=== PATIENT | female | born 1985 | race Caucasian/White ===

== ENCOUNTER 2017-11-13 22:23 | Observation (INO) | payer BC ==
[2017-11-13] MEDS ORDERED: Acetaminophen 325 MG Tab PO PRN (22:36)
[2017-11-13] MEDS ORDERED: Sodium Chloride 0.9% 1,000 ML IV ONE (22:57)
[2017-11-13] MEDS ORDERED: Ondansetron 4 MG/2 ML SDV IVPUSH PRN (22:58)
[2017-11-13] MEDS ORDERED: Promethazine 25 MG/ML SDV IM ONE (22:58)
[2017-11-13] MEDS ORDERED: Morphine 10 MG/ML Syringe IVPUSH PRN (22:59)
[2017-11-13] MEDS ORDERED: Ketorolac 30 MG/ML SDV IVPUSH ONE (23:01)
--- NOTE | 2017-11-13 23:27 | PCM.HP ---
H&P History of Present Illness - General Date of Service: 11/13/17 Admit Problem/Dx: Admission Diagnosis/Problem Admission Diagnosis/Problem Abdominal pain Source of Information: Patient History Limitations: Reports: No Limitations - History of Present Illness Initial Comments - Free Text/Narative: Patient admitted on observation for continued problems with abdominal pain/ nausea/emesis. Employed at our facility. Started to develop abdominal discomfort last Tuesday, one week ago. Discussed this with Kennedy Winkler from our hospital clinic, and he recommended to her to follow up with [facility] surgeons who performed her recent gastric bypass surgery. On Tuesday patient was evaluated by the bariatric surgical staff from [facility], and had CT of abdomen and pelvis performed. CT was unremarkable. Labs unremarkable. Surgeon did not feel that this was a surgical issue and did not find a particular reason for patient's complaints. Patient worked the rest of the week and continued to have intermittent crampy/sharp pain, mostly in RUQ and upper mid abdomen. Intermittent nausea. No bowel changes. No fevers. No UTI complaints. Pain did not radiate. No change with eating/drinking/position. Pain worsened today, becoming more frequent. It is in mid upper abdomen as well as left lower abdomen at this point. Episodes can be as often as every 15- 20 min. Still has nausea. Some dry heaves. No fever/chills. No weight change reported. She did note more frequent softer stools than usual today. No blood/dark color noted. Hx of bariatric surgery, PCO, morbid obesity. Took Zofran at home. Presented to hospital. In view of her recent extensive workup it was decided to admit her to observation, give fluids, improve pain/nausea, and provide additional workup as needed. Patient takes numerous vitamins but says she is on no prescription medications. Abdomen Pain Score (Numeric/FACES): 8 - Related Data Allergies/Adverse Reactions: Allergies Allergy/AdvReac Type Severity Reaction Status Date / Time No Known Allergies Allergy Verified 11/08/17 16:16 Home Medications: Home Meds Biotin [Biotin] 10,000 mcg PO DAILY 11/13/17 [History] Calcium Citrate/Vitamin D3 [Calcium Citrate + D] 1 tab PO DAILY 11/13/17 [ History] Cholecalciferol (Vitamin D3) [Vitamin D3] 5,000 unit PO DAILY 11/13/17 [History] Cyanocobalamin (Vitamin B-12) [Vitamin B-12] 1,000 mcg SL DAILY 11/13/17 [ History] Esomeprazole Magnesium [Nexium] 40 mg PO DAILY 11/13/17 [History] Hyoscyamine [Levsin] 0.125 mg PO Q4HR 11/13/17 [History] Multivit &Minerals/Ferrous Fum [Multivitamin Liquid] 30 ml PO BID 11/13/17 [ History] Ondansetron [Zofran ODT] 4 mg PO Q6HR 11/13/17 [History] Spironolactone [Aldactone] 100 mg PO BID 11/13/17 [History] Vitamin B Complex [Balanced B-50] 1 tab PO DAILY 11/13/17 [History] Past Medical History Respiratory History: Reports: Sleep Apnea Endocrine/Metabolic History: Reports: Obesity/BMI 30+, Other (See Below) ( Polycystic Ovarian Syndrome) Social & Family History - Family History Family Medical History: Noncontributory (for this complaint) - Tobacco Use Smoking Status *Q: Current Every Day Smoker H&P Review of Systems - Review of Systems: Review Of Systems: See Below General: Reports: Malaise, Decreased Appetite. Denies: Fever, Chills, Weakness , Night Sweats, Diaphoresis, Weight Loss, Weight Gain HEENT: Reports: No Symptoms Pulmonary: Reports: No Symptoms Cardiovascular: Reports: No Symptoms Gastrointestinal: Reports: Abdominal Pain, Decreased Appetite, Nausea, Vomiting. Denies: Black Stool, Bloody Stool, Constipation, Diarrhea, Difficulty Swallowing, Hematemesis Genitourinary: Reports: No Symptoms, Other (has IUD) Musculoskeletal: Reports: No Symptoms Skin: Reports: No Symptoms Psychiatric: Reports: No Symptoms Neurological: Reports: No Symptoms Hematologic/Lymphatic: Reports: No Symptoms Exam - Exam Exam: See Below - Vital Signs Vital Signs: Last Vital Signs Temp 36.4 C 11/13/17 22:57 Pulse 58 L 11/13/17 22:57 Resp 16 11/13/17 22:57 BP 134/84 11/13/17 22:57 Pulse Ox 96 11/13/17 22:57 - Exam General: Alert, Oriented, Cooperative, Mild Distress (intermittent pain episodes ) HEENT: Conjunctiva Clear, EACs Clear, EOMI, Hearing Intact, Mucosa Moist & [place] , Nares Patent, Normal Nasal Septum, Pupils Equal, Pupils Reactive Neck: Supple, Trachea Midline Lungs: Clear to Auscultation, Normal Respiratory Effort Cardiovascular: Regular Rate, Regular Rhythm GI/Abdominal Exam: Normal Bowel Sounds, Soft, No Distention, Tender (Diffuse tenderness with palpation all quadrants, but more so RUQ, mid upper abdomen, left mid and lower abdomen. No significant tenderness over bladder/ovaries. ). No: Guarding, Rigid, Rebound (Female) Exam: Deferred Rectal (Female) Exam: Deferred Back Exam: Normal Inspection. No: CVA Tenderness (L), CVA Tenderness (R), Muscle Spasm, Paraspinal Tenderness, Vertebral Tenderness Extremities: Normal Inspection, Normal Range of Motion, Non-Tender, Normal Capillary Refill Peripheral Pulses: 2+: Radial (L), Radial (R) Skin: Warm, Dry, Intact Neurological: Strength Equal Bilateral, Normal Gait, Normal Speech, Normal Tone Neuro Extensive - Mental Status: Alert, Oriented x3, Normal Mood/Affect, Normal Cognition, Memory Intact Neuro Extensive - Motor, Sensory, Reflexes: Normal Gait Psychiatric: Alert, Normal Affect, Normal Mood - Patient Data Result Diagrams: 11/13/17 23:21 11/13/17 23:21 Imaging Impressions Last 24 hrs: Abdominal films did not show obstruction/acute abdomen. No air under diaphragm. *Q Meaningful Use (ADM) - VTE *Q VTE Criteria *Q: - Stroke *Q Stroke Criteria *Q: - AMI *Q AMI Criteria *Q: - Problem List (1) Abdominal pain SNOMED Code(s): 46768490 ICD Code: R10.9 - UNSPECIFIED ABDOMINAL PAIN Status: Acute Priority: High Current Visit: Yes Problem Details: Present for one full week. Extensive workup performed prior to today, including surgical evaluation, CT of abd/pelvis, and blood work. No focal cause identified at this time as workup unremarkable. Worsening intensity today, now includes LLQ. Does not have signs consistent with acute abdomen at this time. Abdomen is soft, no guarding/ rebound. No fevers. Cannot rule out gastroenteritis in differential. Qualifiers: Abdominal location: generalized Qualified Code(s): R10.84 - Generalized abdominal pain (2) Obesity SNOMED Code(s): 003096234 ICD Code: E66.9 - OBESITY, UNSPECIFIED Status: Chronic Priority: Low Current Visit: No Qualifiers: Obesity classification: adult class 3 (BMI >= 40) (3) History of gastric bypass SNOMED Code(s): 618242200 ICD Code: Z98.84 - BARIATRIC SURGERY STATUS Status: Chronic Priority: Medium Current Visit: Yes (4) PCO (polycystic ovaries) SNOMED Code(s): 11244244 ICD Code: E28.2 - POLYCYSTIC OVARIAN SYNDROME Status: Chronic Priority: Low Current Visit: Yes (5) Sleep apnea SNOMED Code(s): 36532625 ICD Code: G47.30 - SLEEP APNEA, UNSPECIFIED Status: Chronic Priority: Low Current Visit: No Qualifiers: Sleep apnea type: unspecified type Qualified Code(s): G47.30 - Sleep apnea , unspecified Problem List Initiated/Reviewed/Updated: Yes Orders Last 24hrs: Active Orders 24 hr Category Date Time Status Patient Status [ADT] Routine ADT 11/13/17 22:36 Active Antiembolic Devices [RC] .Routine Care 11/13/17 22:38 Active Height and Weight [RC] UPON Care 11/13/17 22:36 Active Intake and Output [RC] QSHIFT Care 11/13/17 22:37 Active Pulse Oximetry [RC] PRN Care 11/13/17 22:37 Active Up ad Sunshine [RC] ASDIRECTED Care 11/13/17 22:36 Active VTE/DVT Education [RC] PER UNIT ROUTINE Care 11/13/17 22:38 Active Vital Signs [RC] Q6HR Care 11/13/17 22:36 Active NPO [Nothing Per Oral Diet] [DIET] Diet 11/14/17 Breakfast Active Abdomen 2V AP Flat Upright [CR] Routine Exams 11/13/17 22:45 Ordered AMYLASE [CHEM] Routine Lab 11/13/17 22:55 Ordered CBC WITH AUTO DIFF [HEME] Routine Lab 11/13/17 22:55 Ordered COMPREHENSIVE METABOLIC PN,CMP [CHEM] Routine Lab 11/13/17 22:55 Ordered H PYLORI STOOL ANTIGEN [MREF] Routine Lab 11/13/17 23:04 Ordered HCG QUALITATIVE,URINE [URCHEM] Routine Lab 11/13/17 22:56 Ordered LIPASE [CHEM] Routine Lab 11/13/17 22:55 Ordered OCCULT BLOOD DIAGNOSTIC [OP] Routine Lab 11/13/17 23:05 Ordered UA W/MICROSCOPIC [URIN] Stat Lab 11/13/17 22:54 Ordered Acetaminophen [Tylenol] Med 11/13/17 22:36 Active 650 mg PO Q4H PRN Morphine Med 11/13/17 22:59 Active 5 mg IVPUSH Q2H PRN Ondansetron [Zofran] Med 11/13/17 22:58 Active 4 mg IVPUSH Q6H PRN Sodium Chloride 0.9% [Normal Saline] 1,000 ml Med 11/13/17 22:57 Active IV .BOLUS Sodium Chloride 0.9% [Normal Saline] 1,000 ml Med 11/14/17 01:00 Active IV .BOLUS Sodium Chloride 0.9% [Normal Saline] 1,000 ml Med 11/14/17 03:00 Active IV ASDIRECTED Sodium Chloride 0.9% [Saline Flush] Med 11/13/17 22:55 Active 10 ml FLUSH ASDIRECTED PRN Antiembolic Hose [OM.PC] Per Unit Routine Oth 11/13/17 22:38 Ordered DVT/VTE Prophylaxis Reflex [OM.PC] Routine Oth 11/13/17 22:36 Ordered Saline Lock Insert [OM.PC] Routine Oth 11/13/17 22:55 Ordered Code Status [Resuscitation Status] Routine Resus Stat 11/13/17 22:39 Ordered Medication Orders Acetaminophen (Tylenol) 650 mg PO Q4H PRN PRN Reason: analgesia/fever Sodium Chloride (Normal Saline) 1,000 mls @ 999 mls/hr IV .BOLUS ONE Stop: 11/13/17 23:57 Sodium Chloride (Normal Saline) 1,000 mls @ 500 mls/hr IV .BOLUS ONE Stop: 11/14/17 02:59 Sodium Chloride (Normal Saline) 1,000 mls @ 125 mls/hr IV ASDIRECTED [facility] Morphine Sulfate (Morphine) 5 mg IVPUSH Q2H PRN PRN Reason: Pain (severe 7-10) Ondansetron HCl (Zofran) 4 mg IVPUSH Q6H PRN PRN Reason: Nausea/Vomiting Sodium Chloride (Saline Flush) 10 ml FLUSH ASDIRECTED PRN PRN Reason: Keep Vein Open Assessment/Plan Comment:: Abdominal pain,nausea, emesis over the past week. Worsening intensity today. Unremarkable workup earlier this week including CT. No associated fevers, guarding/rebound. Admit for IV fluids, labs, pain management and additional workup as needed. Cannot rule out viral cause/gastroenteritis as part of differential. UA ordered.
[2017-11-14 00:08] LABS: CHLORIDE,CL 108 mmol/L (98-107); SODIUM,NA 142 mmol/L (136-145)
[2017-11-14] MEDS ORDERED: Sodium Chloride 0.9% 1,000 ML IV ONE ×2 (01:00→07:01)
[2017-11-14] MEDS ORDERED: Sodium Chloride 0.9% 1,000 ML IV SCH (03:00)
[2017-11-14] MEDS ORDERED: Ketorolac 30 MG/ML SDV IVPUSH PRN (06:35)
--- NOTE | 2017-11-14 07:10 | PCM.SN ---
- Free Text/Narrative Note: Patient received IM Phenergan and IV Toradol after admission. Significant improvement of pain. Has had only 350cc urine output at this point despite fluid given IV. Additional bolus of fluid ordered. Patient has been comfortable and sleeping throughout night.
[2017-11-14] MEDS ORDERED: Pantoprazole 40 MG Vial IVPUSH ONE (07:37)
[2017-11-14] MEDS ORDERED: Non-Formulary Medication 1 Each (Hyoscyamine [Levsin] 0.125 MG) PO PRN (08:00)
[2017-11-14] MEDS: Spironolactone 25 MG Tab PO SCH ×3 (08:20→19:35)
[2017-11-14] MEDS ORDERED: Pantoprazole 40 MG Vial IVPUSH SCH (09:00)
--- NOTE | 2017-11-14 09:07 | PCM.PN ---
- General Info Date of Service: 11/14/17 Admission Dx/Problem (Free Text): Abdomen pain Functional Status: Reports: Pain Controlled, Ambulating, Urinating. Denies: Tolerating Diet (Still nothing by mouth however feels she can eat this morning) , New Symptoms, Incentive Spirometry Pain Score: 2 (Much improved with no nausea or colic) - Review of Systems General: Reports: No Symptoms. Denies: Fever, Weakness, Fatigue, Malaise, Chills, Night Sweats HEENT: Reports: No Symptoms. Denies: Dysphasia, Ear Pain, Eye Pain, Headaches, Post Nasal Drip, Sinus Congestion, Sore Throat, Rhinitis, Visual Changes Pulmonary: Reports: No Symptoms. Denies: Shortness of Breath, Pleuritic Chest Pain, Cough, Sputum, Wheezing Cardiovascular: Reports: No Symptoms. Denies: Chest Pain, Palpitations, Dyspnea on Exertion, Orthopnea, Edema, Lightheadedness Gastrointestinal: Reports: Abdominal Pain (Much improved), Other (Excellent large bowel movement at 5 AM this morning by patient history). Denies: Constipation, Decreased Appetite, Diarrhea, Difficulty Swallowing, Flatus, Hematochezia, Melena, Nausea, Vomiting Genitourinary: Reports: No Symptoms, Other (Despite positive UA). Denies: Dysuria, Frequency, Burning, Pain, Urgency, Incontinence, Hematuria, Retention, Flank Pain Musculoskeletal: Reports: No Symptoms. Denies: Neck Pain, Shoulder Pain, Arm Pain, Back Pain, Leg Pain Skin: Reports: No Symptoms. Denies: Cyanosis, Jaundice, Mottled, Diaphoresis, Bruising, Pruritis, Rash Neurological: Reports: No Symptoms. Denies: Confusion, Dizziness, Headache, Numbness, Paresthesia, Tingling, Weakness Psychiatric: Reports: No Symptoms. Denies: Confusion, Depression, Anxiety - Patient Data Vitals - Most Recent: Last Vital Signs Temp 36.9 C 11/13/17 23:05 Pulse 69 11/13/17 23:05 Resp 14 11/13/17 23:05 BP 119/77 11/13/17 23:05 Pulse Ox 97 11/13/17 23:05 Vital Signs - 24 hr 11/13/17 11/13/17 22:57 23:05 Temperature [ 36.4 C 36.9 C Oral] Pulse, 58 L 69 Peripheral [ Pulse Oximetry] Respiratory 16 14 Rate Blood Pressure 134/84 119/77 [Right Arm] O2 Sat by Pulse 96 97 Oximetry Weight - Most Recent: 106.322 kg I&O - Last 24 Hours: Intake & Output 11/13/17 11/14/17 11/14/17 22:59 06:59 14:59 Output Total 450 Balance -450 Lab Results Last 24 Hours: Laboratory Results - last 24 hr 11/13/17 11/13/17 11/13/17 Range/Units 22:54 23:21 23:21 WBC 12.9 H (4.0-10.2) K/uL RBC 4.96 (3.77-5.09) M/uL Hgb 15.5 (11.7-15.5) g/dL Hct 43.8 (34.0-46.0) % MCV 88.3 (84.0-98.0) fL MCH 31.3 (28.2-33.3) pg MCHC 35.4 (31.7-36.0) g/dL RDW 14.0 (11.2-14.1) % Plt Count 206 (150-350) K/uL Neut % (Auto) 78.3 (45.0-80.0) % Lymph % (Auto) 15.8 (10.0-50.0) % Bates % (Auto) 4.1 (2.0-14.0) % Eos % (Auto) 1.6 (0.0-5.0) % Baso % (Auto) 0.2 (0.0-2.0) % Neut # (Auto) 10.10 H (1.40-7.00) K/uL Lymph # (Auto) 2.04 (0.50-3.50) K/uL Bates # (Auto) 0.53 (0.00-1.00) K/uL Eos # (Auto) 0.20 (0.00-0.50) K/uL Baso # (Auto) 0.02 (0.00-0.20) K/uL Sodium 142 (136-145) mmol/L Potassium 3.3 L (3.5-5.1) mmol/L Chloride 108 H (98-107) mmol/L Carbon Dioxide 19.2 L (21.0-32.0) mmol/L BUN 14 (7-18) mg/dL Creatinine 0.82 (0.51-1.17) mg/dL Est Cr Clr Drug Dosing 83.48 mL/min Estimated GFR (MDRD) > 60 mL/min Glucose 112 H (74-106) mg/dL Calcium 8.9 (8.5-10.1) mg/dL Total Bilirubin 0.8 (0.2-1.0) mg/dL AST 17 (15-37) U/L ALT 27 (12-78) U/L Alkaline Phosphatase 91 (46-116) IU/L Total Protein 6.6 (6.4-8.2) g/dL Albumin 3.4 (3.4-5.0) g/dL Amylase 31 (25-115) U/L Lipase 71 L (73-393) U/L HCG, Qual (NEGATIVE) Specimen Type Urinblad Urine Color Dark yellow Urine Appearance Slightly cloudy Urine pH 6.0 (5.0-9.0) Ur Specific [place] 1.015 (1.005-1.030) Urine Protein Trace H (NEGATIVE) mg/dL Urine Glucose (UA) Negative (NEGATIVE) mg/dL Urine Ketones 80 H (NEGATIVE) mg/dL Urine Occult Blood Large H (NEGATIVE) Urine Nitrite Negative (NEGATIVE) Urine Bilirubin Negative (NEGATIVE) Urine Urobilinogen 0.2 (0.2-1.0) E.U./dL Ur Leukocyte Esterase Trace H (NEGATIVE) Urine RBC 75-100 H /HPF Urine WBC 10-20 H /HPF Ur Epithelial Cells Moderate H /LPF Urine Bacteria Moderate H (NONE TO FEW) /HPF 11/13/17 Range/Units 23:21 WBC (4.0-10.2) K/uL RBC (3.77-5.09) M/uL Hgb (11.7-15.5) g/dL Hct (34.0-46.0) % MCV (84.0-98.0) fL MCH (28.2-33.3) pg MCHC (31.7-36.0) g/dL RDW (11.2-14.1) % Plt Count (150-350) K/uL Neut % (Auto) (45.0-80.0) % Lymph % (Auto) (10.0-50.0) % Bates % (Auto) (2.0-14.0) % Eos % (Auto) (0.0-5.0) % Baso % (Auto) (0.0-2.0) % Neut # (Auto) (1.40-7.00) K/uL Lymph # (Auto) (0.50-3.50) K/uL Bates # (Auto) (0.00-1.00) K/uL Eos # (Auto) (0.00-0.50) K/uL Baso # (Auto) (0.00-0.20) K/uL Sodium (136-145) mmol/L Potassium (3.5-5.1) mmol/L Chloride (98-107) mmol/L Carbon Dioxide (21.0-32.0) mmol/L BUN (7-18) mg/dL Creatinine (0.51-1.17) mg/dL Est Cr Clr Drug Dosing mL/min Estimated GFR (MDRD) mL/min Glucose (74-106) mg/dL Calcium (8.5-10.1) mg/dL Total Bilirubin (0.2-1.0) mg/dL AST (15-37) U/L ALT (12-78) U/L Alkaline Phosphatase (46-116) IU/L Total Protein (6.4-8.2) g/dL Albumin (3.4-5.0) g/dL Amylase (25-115) U/L Lipase (73-393) U/L HCG, Qual Negative (NEGATIVE) Specimen Type Urine Color Urine Appearance Urine pH (5.0-9.0) Ur Specific [place] (1.005-1.030) Urine Protein (NEGATIVE) mg/dL Urine Glucose (UA) (NEGATIVE) mg/dL Urine Ketones (NEGATIVE) mg/dL Urine Occult Blood (NEGATIVE) Urine Nitrite (NEGATIVE) Urine Bilirubin (NEGATIVE) Urine Urobilinogen (0.2-1.0) E.U./dL Ur Leukocyte Esterase (NEGATIVE) Urine RBC /HPF Urine WBC /HPF Ur Epithelial Cells /LPF Urine Bacteria (NONE TO FEW) /HPF [place]ente Results Last 24 Hours: Microbiology 11/14/17 06:00 Stool Occult Blood (VALENTE) - Final Stool / Feces NEGATIVE OCCULT BLOOD Med Orders - Current: Current Medications Acetaminophen (Tylenol) 650 mg PO Q4H PRN PRN Reason: analgesia/fever Ciprofloxacin/Dextrose 200 mg/ (Premix) 100 mls @ 100 mls/hr IV Q12HR [facility] Ketorolac Tromethamine (Toradol) 30 mg IVPUSH Q6H PRN PRN Reason: Pain Stop: 11/19/17 06:35 Non-Formulary Medication (Hyoscyamine [Levsin]) 0.125 mg PO Q4H PRN PRN Reason: ABDOMINAL PAIN Ondansetron HCl (Zofran) 4 mg IVPUSH Q6H PRN PRN Reason: Nausea/Vomiting Pantoprazole Sodium (Protonix Iv) 40 mg IVPUSH Q12H [facility] Sodium Chloride (Saline Flush) 10 ml FLUSH ASDIRECTED PRN PRN Reason: Keep Vein Open Spironolactone (Aldactone) 100 mg PO BIDDIURETIC [facility] Last Admin: 11/14/17 08:20 Dose: 100 mg Discontinued Medications Sodium Chloride (Normal Saline) 1,000 mls @ 999 mls/hr IV .BOLUS ONE Stop: 11/13/17 23:57 Last Admin: 11/13/17 23:26 Dose: 999 mls/hr Sodium Chloride (Normal Saline) 1,000 mls @ 500 mls/hr IV .BOLUS ONE Stop: 11/14/17 02:59 Last Admin: 11/14/17 00:30 Dose: 500 mls/hr Sodium Chloride (Normal Saline) 1,000 mls @ 125 mls/hr IV ASDIRECTED [facility] Last Admin: 11/14/17 02:32 Dose: 125 mls/hr Sodium Chloride (Normal Saline) 1,000 mls @ 500 mls/hr IV .BOLUS ONE Stop: 11/14/17 09:00 Last Admin: 11/14/17 08:20 Dose: 500 mls/hr Ketorolac Tromethamine (Toradol) 30 mg IVPUSH ONETIME ONE Stop: 11/13/17 23:02 Last Admin: 11/13/17 23:26 Dose: 30 mg Morphine Sulfate (Morphine) 5 mg IVPUSH Q2H PRN PRN Reason: Pain (severe 7-10) Pantoprazole Sodium (Protonix Iv) 40 mg IVPUSH ONETIME ONE Stop: 11/14/17 07:38 Last Admin: 11/14/17 08:20 Dose: 40 mg Pantoprazole Sodium (Protonix Iv) 40 mg IVPUSH Q12H [facility] Promethazine HCl (Phenergan) 25 mg IM ONETIME ONE Stop: 11/13/17 22:59 Last Admin: 11/13/17 23:27 Dose: 25 mg - Exam Quality Assessment: DVT Prophylaxis. No: Supplemental Oxygen, Central Line/PICC , Urine Catheter, Skin Breakdown, Restraints General: Alert, Oriented, Cooperative, No Acute Distress HEENT: Pupils Equal, Pupils Reactive, EOMI, Mucous Membr. Moist/[place]. No: Scleral Icterus Neck: Supple, Trachea Midline, No JVD, No Thyromegaly. No: Lymphadenopathy Lungs: Clear to Auscultation, Normal Respiratory Effort. No: Rales, Rhonchi, Rub, Wheezing Cardiovascular: Regular Rate, Regular Rhythm, No Murmurs. No: Gallops, Rubs GI/Abdominal Exam: Normal Bowel Sounds, No Organomegaly, No Distention, No Abnormal Bruit, No Mass, Pelvis Stable, Tender (Mild left upper quadrant palpation pain), Other (Multiple abdominal scars from previous gastric bypass, etc. Obese). No: Guarding, Rebound (Female) Exam: Deferred Back Exam: Normal Inspection, Full Range of Motion. No: CVA Tenderness (L), CVA Tenderness (R), Muscle Spasm Extremities: Normal Inspection, Normal Range of Motion, Non-Tender, No Pedal Edema, Normal Capillary Refill, Other (Occasional tattoos). No: Jamir's Sign Peripheral Pulses: 2+: Radial (L), Radial (R), Dorsalis Pedis (L), Dorsalis Pedis (R) Skin: Warm, Dry, Intact. No: Ecchymosis Neurological: No New Focal Deficit, Other (No clinical orthostasis) - Problem List & Annotations (1) Abdominal pain SNOMED Code(s): 66914511 Code(s): R10.9 - UNSPECIFIED ABDOMINAL PAIN Status: Acute Priority: High Current Visit: Yes Onset Date: ~11/13/17 Qualifiers: Abdominal location: generalized Qualified Code(s): R10.84 - Generalized abdominal pain Annotation/Comment:: Abdominal pain now centered in the left upper quadrant. Patient did receive IV Protonix and is currently on IV Toradol. Continue Toradol with caution with continuation of high-dose IV Protonix and additional IV Pepcid to be started this morning. Patient's pain initially at time of rounds only / however returned symptoms of 6/10 at end of morning rounds. Official report of CT scan of the abdomen and pelvis from 11/13/17 was reviewed with previous comparison film of 11/08/17. The patient is status post cholecystectomy, gastric bypass, and IUD placement. Previous symptoms have been present for one full week. Extensive workup performed prior to today, including surgical evaluation, CT of abd/pelvis, and blood work. No focal cause identified at this time as workup unremarkable. Consider further GI workup and/ or surgical consultation, including possible EGD. Gastroccult and H. pylori stool specimens have been ordered. Initiate IV Cipro this morning secondary to her UTI as below. Consider additional IV Flagyl therapy depending on her clinical course. Plan to discharge to home tomorrow, however may need to change to acute care pending on her clinical course. Start diet this morning with caution. (2) UTI (urinary tract infection) SNOMED Code(s): 70683740 Code(s): N39.0 - URINARY TRACT INFECTION, SITE NOT SPECIFIED Status: Acute Priority: High Current Visit: Yes Onset Date: 11/13/17 Qualifiers: Urinary tract infection type: acute cystitis Hematuria presence: with hematuria Qualified Code(s): N30.01 - Acute cystitis with hematuria Annotation/Comment:: Significant microhematuria without colic. Urine specimen set up for culture and sensitivity this morning. Initiate IV Cipro therapy. Note leukocytosis on admission. Repeat blood work in the a.m. (3) Hypokalemia SNOMED Code(s): 85856156 Code(s): E87.6 - HYPOKALEMIA Status: Acute Priority: Medium Current Visit: Yes Onset Date: 11/13/17 Annotation/Comment:: Patient has already received significant IV fluids. No further potassium supplementation for now. Attempt to hold IV fluids for the time being and repeat blood work in the a.m. (4) PCO (polycystic ovaries) SNOMED Code(s): 62600606 Code(s): E28.2 - POLYCYSTIC OVARIAN SYNDROME Status: Chronic Priority: Medium Current Visit: Yes Annotation/Comment:: Currently on spironolactone with no history of hypertension. Consider additional metformin therapy (5) Obesity SNOMED Code(s): 958860103 Code(s): E66.9 - OBESITY, UNSPECIFIED Status: Chronic Priority: Medium Current Visit: No Qualifiers: Obesity classification: adult class 3 (BMI >= 40) Annotation/Comment:: Patient was congratulated about her 80 pound weight loss since gastric bypass. Glycosylated hemoglobin in the a.m. (6) Sleep apnea SNOMED Code(s): 87924619 Code(s): G47.30 - SLEEP APNEA, UNSPECIFIED Status: Chronic Priority: Medium Current Visit: No Qualifiers: Sleep apnea type: unspecified type Qualified Code(s): G47.30 - Sleep apnea , unspecified Annotation/Comment:: Patient currently using CPAP, although she did not have this available this past evening. will bring her unit in today - Problem List Review Problem List Initiated/Reviewed/Updated: Yes - My Orders Last 24 Hours: My Active Orders 11/14/17 08:54 CULTURE URINE [RM] Routine 11/14/17 08:57 OCCULT BLOOD DIAGNOSTIC [OP] Stat 11/14/17 19:00 Pantoprazole [ProTONIX IV] 40 mg IVPUSH Q12H 11/14/17 20:00 Ciprofloxacin in D5W [Cipro in D5W 200 MG/100 ML] 200 mg Premix Bag 1 bag IV Q12HR 11/14/17 Lunch [place] Diet [DIET] 11/15/17 05:11 Abdomen Series w Chest 1V [CR] Routine AMYLASE [CHEM] Routine CBC WITH AUTO DIFF [HEME] Routine COMPREHENSIVE METABOLIC PN,CMP [CHEM] Routine LIPASE [CHEM] Routine - Assessment Assessment:: As above - Plan Plan:: As above. Extensive precautions were given to the patient and her , who are in agreement with the treatment plan. The patient will likely be discharged to home tomorrow
[2017-11-14] MEDS: Sodium Chloride 0.9% 10 ML Syringe FLUSH PRN ×4 (09:43→21:58)
[2017-11-14] MEDS: Ciprofloxacin in D5W 200 MG in Premix Bag 1 BAG IV SCH ×4 (10:40→21:58)
[2017-11-14] MEDS: Famotidine 20 MG/2 ML SDV IVPUSH SCH ×2 (10:42→18:16)
[2017-11-14] MEDS: Pantoprazole 40 MG Vial IVPUSH SCH (18:16)
[2017-11-15] MEDS: Spironolactone 25 MG Tab PO SCH (07:30)
[2017-11-15] MEDS: Famotidine 20 MG/2 ML SDV IVPUSH SCH (07:32)
[2017-11-15] MEDS: Pantoprazole 40 MG Vial IVPUSH SCH (07:40)
[2017-11-15 08:00] LABS: CHLORIDE,CL 111 mmol/L (98-107); SODIUM,NA 145 mmol/L (136-145)
--- NOTE | 2017-11-15 09:36 | PCM.DCSUM1 ---
Discharge Summary - Hospital Course HPI Initial Comments: See emergency room note/admission H&P Brief History: See emergency room note/admission H&P - Discharge Data Discharge Date: 11/16/17 Discharge Disposition: Home, Self-Care 01 Condition: Good - Discharge Diagnosis/Problem(s) (1) Abdominal pain SNOMED Code(s): 63432260 ICD Code: R10.9 - UNSPECIFIED ABDOMINAL PAIN Status: Acute Priority: High Current Visit: Yes Onset Date: ~11/13/17 Problem Details: Resolved abdominal pain at this time. Strict compliance with diet encouraged. Patient apparently did miss at least one of her doses of Nexium prior to admission with strict medication compliance also encouraged. Abdominal pain has now since completely resolved. Patient did receive IV Protonix initially on admission and was treated with occasional IV Toradol. Subsequent continuation of high-dose IV Protonix and additional IV Pepcid to be started yesterday morning. Note correction from last progress note with CT scan of the abdomen and pelvis actually not repeated on 11/13 with previous study conducted on 11/08/17 with no significant findings at that time. The patient is status post cholecystectomy, gastric bypass, and IUD placement. Previous symptoms have been present for one full week. Extensive workup performed prior to today, including surgical evaluation, CT of abd/pelvis, and blood work. No focal cause identified at that time as workup unremarkable. Consider further GI workup and/or surgical consultation, including possible EGD. Gastroccult and H. pylori stool specimens have been ordered with negative Hemoccult to this point. Initiated IV Cipro yesterday morning secondary to her UTI as below. Additional IV Flagyl therapy was not required. Patient has tolerated her bland diet to this point. Qualifiers: Abdominal location: generalized Qualified Code(s): R10.84 - Generalized abdominal pain (2) UTI (urinary tract infection) SNOMED Code(s): 48446955 ICD Code: N39.0 - URINARY TRACT INFECTION, SITE NOT SPECIFIED Status: Acute Priority: High Current Visit: Yes Onset Date: 11/13/17 Problem Details: Significant microhematuria without colic. Urine specimen set up for culture and sensitivity yesterday morning with results. Continue oral Cipro therapy close follow-up by her regular provider as per discharge instructions. Note leukocytosis on admission has since resolved this morning. Qualifiers: Urinary tract infection type: acute cystitis Hematuria presence: with hematuria Qualified Code(s): N30.01 - Acute cystitis with hematuria (3) Hypokalemia SNOMED Code(s): 79436403 ICD Code: E87.6 - HYPOKALEMIA Status: Acute Priority: Medium Current Visit: Yes Onset Date: 11/13/17 Problem Details: Patient received significant IV fluids as admission with IV fluids discontinued yesterday morning. Potassium level normal at this time with no further supplementation required for now. Close follow-up by regular provider as per discharge instructions. (4) PCO (polycystic ovaries) SNOMED Code(s): 28209845 ICD Code: E28.2 - POLYCYSTIC OVARIAN SYNDROME Status: Chronic Priority: Medium Current Visit: Yes Problem Details: Currently on spironolactone with no history of hypertension. Consider additional metformin therapy by her regular providers (5) Obesity SNOMED Code(s): 297605353 ICD Code: E66.9 - OBESITY, UNSPECIFIED Status: Chronic Priority: Medium Current Visit: No Problem Details: Patient was congratulated about her 80 pound weight loss since gastric bypass. Glycosylated hemoglobin conducted this morning was normal. Qualifiers: Obesity classification: adult class 3 (BMI >= 40) (6) Sleep apnea SNOMED Code(s): 44597864 ICD Code: G47.30 - SLEEP APNEA, UNSPECIFIED Status: Chronic Priority: Medium Current Visit: No Problem Details: Patient currently using CPAP, although she did not have this available on the evening of admission. CPAP therapy subsequently conducted during this hospitalization. Consider repeat inpatient sleep study once the patient has completed her weight loss program. Qualifiers: Sleep apnea type: unspecified type Qualified Code(s): G47.30 - Sleep apnea , unspecified (7) Hypoalbuminemia SNOMED Code(s): 949662088 ICD Code: E88.09 - OTH DISORDERS OF PLASMA-PROTEIN METABOLISM, NEC Status: Acute Priority: Medium Current Visit: Yes Onset Date: 11/15/17 Problem Details: Initiate high-protein Glucerna supplement twice a day as snacks - Patient Summary/Data Operative Procedure(s) Performed: None Complications: None Consults: None Labs Pending at D/C: 1. Stool for H. pylori. 2. 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 Note additional IV Pepcid therapy was initiated yesterday as above. Normal bowel movements during this hospitalization with complete resolution of symptoms at discharge. Note newly diagnosed UTI with overall good response to IV Cipro therapy and resolution of her previous leukocytosis. Aggressive IV fluids also given during initial courses of hospitalization as above. No significant complications during this hospitalization. - Patient Instructions Diet: Heart Healthy Diet (Post gastric bypass) Diet, Other: High-protein Glucerna supplements twice a day as snacks Activity: As Tolerated Driving: May Drive Today Showering/Bathing: May Shower Notify Provider of: Fever, Increased Pain, Nausea and/or Vomiting Other/Special Instructions: 1. Followup with your regular provider in 10-14 days as directed, including recommended CBC, comprehensive, UA and urine for culture and sensitivity. 2. Work excuse- See Form - Discharge Plan Home Medications: Home Meds Biotin 10,000 mcg PO DAILY 11/13/17 [History] Calcium Citrate/Vitamin D3 [Calcium Citrate + D] 1 tab PO DAILY 11/13/17 [ History] Cholecalciferol (Vitamin D3) [Vitamin D3] 5,000 unit PO DAILY 11/13/17 [History] Cyanocobalamin (Vitamin B-12) [Vitamin B-12] 1,000 mcg SL DAILY 11/13/17 [ History] Esomeprazole Magnesium [Nexium] 40 mg PO DAILY 11/13/17 [History] Hyoscyamine [Levsin] 0.125 mg PO Q4H PRN 11/13/17 [History] Multivit &Minerals/Ferrous Fum [Multivitamin Liquid] 30 ml PO BID 11/13/17 [ History] Ondansetron [Zofran ODT] 4 mg PO Q6HR 11/13/17 [History] Spironolactone [Aldactone] 100 mg PO BID 11/13/17 [History] Vitamin B Complex [Balanced B-50] 1 tab PO DAILY 11/13/17 [History] Acetaminophen [Tylenol] 650 mg PO Q4H PRN #100 tablet 11/15/17 [Rx] Patient Handouts: Abdominal Pain, Adult, Urinary Tract Infection, Adult, Ciprofloxacin injection - Discharge Summary/Plan Comment DC Time >30 min.: Yes (Coordination of care ) Discharge Summary/Plan Comment: As above. Extensive precautions were given to the patient, who is in agreement with the treatment plan. See patient discharge instructions for complete list of discharge medications, including changes. - General Info Date of Service: 11/15/17 Admission Dx/Problem (Free Text: Abdomen pain Functional Status: Reports: Pain Controlled, Tolerating Diet, Ambulating, Urinating, New Symptoms. Denies: Incentive Spirometry Numeric/FACES Score: 0 - Review of Systems General: Reports: No Symptoms. Denies: Fever, Weakness, Fatigue, Malaise, Night Sweats, Appetite (Appetite good) HEENT: Reports: No Symptoms. Denies: Ear Pain, Eye Pain, Headaches, Post Nasal Drip, Sinus Congestion, Sore Throat, Rhinitis, Visual Changes Pulmonary: Reports: No Symptoms. Denies: Shortness of Breath, Pleuritic Chest Pain, Cough, Wheezing Cardiovascular: Reports: No Symptoms. Denies: Chest Pain, Palpitations, Dyspnea on Exertion, Orthopnea, Edema, Lightheadedness Gastrointestinal: Reports: No Symptoms. Denies: Abdominal Pain, Constipation, Decreased Appetite, Diarrhea, Difficulty Swallowing, Flatus, Hematochezia, Melena, Nausea, Vomiting Genitourinary: Reports: No Symptoms. Denies: Dysuria, Frequency, Burning, Pain , Urgency, Incontinence, Hematuria, Retention, Flank Pain Musculoskeletal: Reports: No Symptoms. Denies: Neck Pain, Shoulder Pain, Arm Pain, Back Pain, Leg Pain Skin: Reports: No Symptoms. Denies: Jaundice, Pallor, Diaphoresis, Bruising, Pruritis, Rash Neurological: Reports: No Symptoms. Denies: Confusion, Dizziness, Headache, Numbness, Paresthesia, Tingling, Weakness Psychiatric: Reports: No Symptoms. Denies: Confusion, Depression, Anxiety, Agitation, Hallucinations - Patient Data Vitals - Most Recent: Last Vital Signs Temp 36.3 C 11/15/17 06:00 Pulse 47 L 11/15/17 06:00 Resp 14 11/15/17 06:00 BP 102/62 11/15/17 06:00 Pulse Ox 98 11/15/17 06:00 Vital Signs - 24 hr 11/14/17 11/14/17 11/15/17 11:18 18:00 00:00 Temperature [ 36.8 C Oral] Temperature [ 36.9 C 36.2 C Temporal] Pulse, 62 59 L 57 L Peripheral [ Pulse Oximetry] Respiratory 16 16 16 Rate Blood Pressure 122/80 107/71 [Left Upper Arm ] Blood Pressure 124/72 [Right Arm] O2 Sat by Pulse 97 96 98 Oximetry 11/15/17 06:00 Temperature [ Oral] Temperature [ 36.3 C Temporal] Pulse, 47 L Peripheral [ Pulse Oximetry] Respiratory 14 Rate Blood Pressure 102/62 [Left Upper Arm ] Blood Pressure [Right Arm] O2 Sat by Pulse 98 Oximetry Weight - Most Recent: 106.322 kg I&O - Last 24 hours: Intake & Output 11/14/17 11/15/17 11/15/17 22:59 06:59 14:59 Intake Total 1140 Output Total 300 200 Balance 840 -200 Imaging Impressions - Last 24 hrs: Acute abdominal x-rays on 11/15/17 shows evidence of mildly increased diffuse nonspecific bowel gaseous pattern with only equivocal occasional fluid levels, however no evidence of free air, ileus, obstruction, pulmonary infiltrates, cardiomegaly, CHF, pneumothorax, etc. Mild scoliosis and osteoarthritic changes noted in the thoracic spine. Note status post IUD placement, laparoscopic cholecystectomy, gastric bypass. Mildly prominent aortic arch was also present. Lab Results - Last 24 hrs: Laboratory Results - last 24 hr 11/15/17 11/15/17 11/15/17 Range/Units 07:05 07:05 07:05 WBC 7.5 (4.0-10.2) K/uL RBC 4.22 (3.77-5.09) M/uL Hgb 12.9 D (11.7-15.5) g/dL Hct 39.1 (34.0-46.0) % MCV 92.7 D (84.0-98.0) fL MCH 30.6 (28.2-33.3) pg MCHC 33.0 (31.7-36.0) g/dL RDW 14.2 H (11.2-14.1) % Plt Count 162 (150-350) K/uL Neut % (Auto) 40.8 L (45.0-80.0) % Lymph % (Auto) 45.5 (10.0-50.0) % [place] % (Auto) 7.8 (2.0-14.0) % Eos % (Auto) 5.8 H (0.0-5.0) % Baso % (Auto) 0.1 (0.0-2.0) % Neut # (Auto) 3.05 (1.40-7.00) K/uL Lymph # (Auto) 3.40 (0.50-3.50) K/uL [place] # (Auto) 0.58 (0.00-1.00) K/uL Eos # (Auto) 0.43 (0.00-0.50) K/uL Baso # (Auto) 0.01 (0.00-0.20) K/uL Sodium 145 (136-145) mmol/L Potassium 3.8 (3.5-5.1) mmol/L Chloride 111 H (98-107) mmol/L Carbon Dioxide 24.8 (21.0-32.0) mmol/L BUN 12 (7-18) mg/dL Creatinine 0.94 (0.51-1.17) mg/dL Est Cr Clr Drug Dosing 73.35 mL/min Estimated GFR (MDRD) > 60 mL/min Glucose 77 (74-106) mg/dL Hemoglobin A1c 5.5 (4.3-5.7) % Uric Acid 5.1 (2.6-7.2) mg/dL Calcium 8.7 (8.5-10.1) mg/dL Total Bilirubin 0.9 (0.2-1.0) mg/dL AST 14 L (15-37) U/L ALT 24 (12-78) U/L Alkaline Phosphatase 78 (46-116) IU/L Total Protein 5.8 L (6.4-8.2) g/dL Albumin 2.8 L (3.4-5.0) g/dL Amylase 29 (25-115) U/L Lipase 63 L (73-393) U/L Laboratory Tests 11/13/17 11/13/17 11/13/17 Range/Units 22:54 23:21 23:21 WBC 12.9 H (4.0-10.2) K/uL RBC 4.96 (3.77-5.09) M/uL Hgb 15.5 (11.7-15.5) g/dL Hct 43.8 (34.0-46.0) % MCV 88.3 (84.0-98.0) fL MCH 31.3 (28.2-33.3) pg MCHC 35.4 (31.7-36.0) g/dL RDW 14.0 (11.2-14.1) % Plt Count 206 (150-350) K/uL Neut % (Auto) 78.3 (45.0-80.0) % Lymph % (Auto) 15.8 (10.0-50.0) % [place] % (Auto) 4.1 (2.0-14.0) % Eos % (Auto) 1.6 (0.0-5.0) % Baso % (Auto) 0.2 (0.0-2.0) % Neut # (Auto) 10.10 H (1.40-7.00) K/uL Lymph # (Auto) 2.04 (0.50-3.50) K/uL [place] # (Auto) 0.53 (0.00-1.00) K/uL Eos # (Auto) 0.20 (0.00-0.50) K/uL Baso # (Auto) 0.02 (0.00-0.20) K/uL Sodium 142 (136-145) mmol/L Potassium 3.3 L (3.5-5.1) mmol/L Chloride 108 H (98-107) mmol/L Carbon Dioxide 19.2 L (21.0-32.0) mmol/L BUN 14 (7-18) mg/dL Creatinine 0.82 (0.51-1.17) mg/dL Est Cr Clr Drug Dosing 83.48 mL/min Estimated GFR (MDRD) > 60 mL/min Glucose 112 H (74-106) mg/dL Hemoglobin A1c (4.3-5.7) % Uric Acid (2.6-7.2) mg/dL Calcium 8.9 (8.5-10.1) mg/dL Total Bilirubin 0.8 (0.2-1.0) mg/dL AST 17 (15-37) U/L ALT 27 (12-78) U/L Alkaline Phosphatase 91 (46-116) IU/L Total Protein 6.6 (6.4-8.2) g/dL Albumin 3.4 (3.4-5.0) g/dL Amylase 31 (25-115) U/L Lipase 71 L (73-393) U/L HCG, Qual (NEGATIVE) Specimen Type Urinblad Urine Color Dark yellow Urine Appearance Slightly cloudy Urine pH 6.0 (5.0-9.0) Ur Specific [place] 1.015 (1.005-1.030) Urine Protein Trace H (NEGATIVE) mg/dL Urine Glucose (UA) Negative (NEGATIVE) mg/dL Urine Ketones 80 H (NEGATIVE) mg/dL Urine Occult Blood Large H (NEGATIVE) Urine Nitrite Negative (NEGATIVE) Urine Bilirubin Negative (NEGATIVE) Urine Urobilinogen 0.2 (0.2-1.0) E.U./dL Ur Leukocyte Esterase Trace H (NEGATIVE) Urine RBC 75-100 H /HPF Urine WBC 10-20 H /HPF Ur Epithelial Cells Moderate H /LPF Urine Bacteria Moderate H (NONE TO FEW) /HPF 11/13/17 11/15/17 11/15/17 Range/Units 23:21 07:05 07:05 WBC 7.5 (4.0-10.2) K/uL RBC 4.22 (3.77-5.09) M/uL Hgb 12.9 D (11.7-15.5) g/dL Hct 39.1 (34.0-46.0) % MCV 92.7 D (84.0-98.0) fL MCH 30.6 (28.2-33.3) pg MCHC 33.0 (31.7-36.0) g/dL RDW 14.2 H (11.2-14.1) % Plt Count 162 (150-350) K/uL Neut % (Auto) 40.8 L (45.0-80.0) % Lymph % (Auto) 45.5 (10.0-50.0) % [place] % (Auto) 7.8 (2.0-14.0) % Eos % (Auto) 5.8 H (0.0-5.0) % Baso % (Auto) 0.1 (0.0-2.0) % Neut # (Auto) 3.05 (1.40-7.00) K/uL Lymph # (Auto) 3.40 (0.50-3.50) K/uL [place] # (Auto) 0.58 (0.00-1.00) K/uL Eos # (Auto) 0.43 (0.00-0.50) K/uL Baso # (Auto) 0.01 (0.00-0.20) K/uL Sodium 145 (136-145) mmol/L Potassium 3.8 (3.5-5.1) mmol/L Chloride 111 H (98-107) mmol/L Carbon Dioxide 24.8 (21.0-32.0) mmol/L BUN 12 (7-18) mg/dL Creatinine 0.94 (0.51-1.17) mg/dL Est Cr Clr Drug Dosing 73.35 mL/min Estimated GFR (MDRD) > 60 mL/min Glucose 77 (74-106) mg/dL Hemoglobin A1c (4.3-5.7) % Uric Acid 5.1 (2.6-7.2) mg/dL Calcium 8.7 (8.5-10.1) mg/dL Total Bilirubin 0.9 (0.2-1.0) mg/dL AST 14 L (15-37) U/L ALT 24 (12-78) U/L Alkaline Phosphatase 78 (46-116) IU/L Total Protein 5.8 L (6.4-8.2) g/dL Albumin 2.8 L (3.4-5.0) g/dL Amylase 29 (25-115) U/L Lipase 63 L (73-393) U/L HCG, Qual Negative (NEGATIVE) Specimen Type Urine Color Urine Appearance Urine pH (5.0-9.0) Ur Specific [place] (1.005-1.030) Urine Protein (NEGATIVE) mg/dL Urine Glucose (UA) (NEGATIVE) mg/dL Urine Ketones (NEGATIVE) mg/dL Urine Occult Blood (NEGATIVE) Urine Nitrite (NEGATIVE) Urine Bilirubin (NEGATIVE) Urine Urobilinogen (0.2-1.0) E.U./dL Ur Leukocyte Esterase (NEGATIVE) Urine RBC /HPF Urine WBC /HPF Ur Epithelial Cells /LPF Urine Bacteria (NONE TO FEW) /HPF 11/15/17 Range/Units 07:05 WBC (4.0-10.2) K/uL RBC (3.77-5.09) M/uL Hgb (11.7-15.5) g/dL Hct (34.0-46.0) % MCV (84.0-98.0) fL MCH (28.2-33.3) pg MCHC (31.7-36.0) g/dL RDW (11.2-14.1) % Plt Count (150-350) K/uL Neut % (Auto) (45.0-80.0) % Lymph % (Auto) (10.0-50.0) % [place] % (Auto) (2.0-14.0) % Eos % (Auto) (0.0-5.0) % Baso % (Auto) (0.0-2.0) % Neut # (Auto) (1.40-7.00) K/uL Lymph # (Auto) (0.50-3.50) K/uL [place] # (Auto) (0.00-1.00) K/uL Eos # (Auto) (0.00-0.50) K/uL Baso # (Auto) (0.00-0.20) K/uL Sodium (136-145) mmol/L Potassium (3.5-5.1) mmol/L Chloride (98-107) mmol/L Carbon Dioxide (21.0-32.0) mmol/L BUN (7-18) mg/dL Creatinine (0.51-1.17) mg/dL Est Cr Clr Drug Dosing mL/min Estimated GFR (MDRD) mL/min Glucose (74-106) mg/dL Hemoglobin A1c 5.5 (4.3-5.7) % Uric Acid (2.6-7.2) mg/dL Calcium (8.5-10.1) mg/dL Total Bilirubin (0.2-1.0) mg/dL AST (15-37) U/L ALT (12-78) U/L Alkaline Phosphatase (46-116) IU/L Total Protein (6.4-8.2) g/dL Albumin (3.4-5.0) g/dL Amylase (25-115) U/L Lipase (73-393) U/L HCG, Qual (NEGATIVE) Specimen Type Urine Color Urine Appearance Urine pH (5.0-9.0) Ur Specific [place] (1.005-1.030) Urine Protein (NEGATIVE) mg/dL Urine Glucose (UA) (NEGATIVE) mg/dL Urine Ketones (NEGATIVE) mg/dL Urine Occult Blood (NEGATIVE) Urine Nitrite (NEGATIVE) Urine Bilirubin (NEGATIVE) Urine Urobilinogen (0.2-1.0) E.U./dL Ur Leukocyte Esterase (NEGATIVE) Urine RBC /HPF Urine WBC /HPF Ur Epithelial Cells /LPF Urine Bacteria (NONE TO FEW) /HPF TOM Results - Last 24 hrs: Microbiology 11/14/17 18:00 Stool Occult Blood (TOM) - Final Stool / Feces NEGATIVE OCCULT BLOOD 11/14/17 06:00 Stool Occult Blood (TMO) - Final Stool / Feces NEGATIVE OCCULT BLOOD Stool for H. pylori antigen depending Urine for culture and sensitivity pending Med Orders - Current: Current Medications Acetaminophen (Tylenol) 650 mg PO Q4H PRN PRN Reason: analgesia/fever Famotidine (Pepcid) 20 mg IVPUSH BID [facility] Last Admin: 11/15/17 07:32 Dose: 20 mg Ciprofloxacin/Dextrose 200 mg/ (Premix) 100 mls @ 100 mls/hr IV Q12H [facility] Last Admin: 11/14/17 21:58 Dose: 100 mls/hr Ketorolac Tromethamine (Toradol) 30 mg IVPUSH Q6H PRN PRN Reason: Pain Stop: 11/19/17 06:35 Last Admin: 11/14/17 09:42 Dose: 30 mg Non-Formulary Medication (Hyoscyamine [Levsin]) 0.125 mg PO Q4H PRN PRN Reason: ABDOMINAL PAIN Ondansetron HCl (Zofran) 4 mg IVPUSH Q6H PRN PRN Reason: Nausea/Vomiting Last Admin: 11/14/17 09:43 Dose: 4 mg Pantoprazole Sodium (Protonix Iv) 40 mg IVPUSH Q12H [facility] Last Admin: 11/15/17 07:40 Dose: 40 mg Sodium Chloride (Saline Flush) 10 ml FLUSH ASDIRECTED PRN PRN Reason: Keep Vein Open Last Admin: 11/14/17 21:58 Dose: 10 ml Spironolactone (Aldactone) 100 mg PO Q12HR [facility] Last Admin: 11/15/17 07:30 Dose: 100 mg Discontinued Medications Sodium Chloride (Normal Saline) 1,000 mls @ 999 mls/hr IV .BOLUS ONE Stop: 11/13/17 23:57 Last Admin: 11/13/17 23:26 Dose: 999 mls/hr Sodium Chloride (Normal Saline) 1,000 mls @ 500 mls/hr IV .BOLUS ONE Stop: 11/14/17 02:59 Last Admin: 11/14/17 00:30 Dose: 500 mls/hr Sodium Chloride (Normal Saline) 1,000 mls @ 125 mls/hr IV ASDIRECTED [facility] Last Admin: 11/14/17 02:32 Dose: 125 mls/hr Sodium Chloride (Normal Saline) 1,000 mls @ 500 mls/hr IV .BOLUS ONE Stop: 11/14/17 09:00 Last Admin: 11/14/17 08:20 Dose: 500 mls/hr Ketorolac Tromethamine (Toradol) 30 mg IVPUSH ONETIME ONE Stop: 11/13/17 23:02 Last Admin: 11/13/17 23:26 Dose: 30 mg Morphine Sulfate (Morphine) 5 mg IVPUSH Q2H PRN PRN Reason: Pain (severe 7-10) Pantoprazole Sodium (Protonix Iv) 40 mg IVPUSH ONETIME ONE Stop: 11/14/17 07:38 Last Admin: 11/14/17 08:20 Dose: 40 mg Pantoprazole Sodium (Protonix Iv) 40 mg IVPUSH Q12H [facility] Promethazine HCl (Phenergan) 25 mg IM ONETIME ONE Stop: 11/13/17 22:59 Last Admin: 11/13/17 23:27 Dose: 25 mg Spironolactone (Aldactone) 100 mg PO BIDDIURETIC [facility] Last Admin: 11/14/17 12:01 Dose: Not Given - Exam Quality Assessment: Reports: DVT Prophylaxis. Denies: Supplemental Oxygen, Central Line/PICC, Urine Catheter, Restraints General: Reports: Alert, Oriented, Cooperative, No Acute Distress HEENT: Reports: Pupils Equal, Pupils Reactive, EOMI, Mucous Membr. Moist/Halfway House. Denies: Scleral Icterus Neck: Reports: Supple, Trachea Midline, No JVD, No Thyromegaly. Denies: Thyromegaly Lungs: Reports: Clear to Auscultation, Normal Respiratory Effort. Denies: Rub Cardiovascular: Reports: Regular Rate, Regular Rhythm, No Murmurs. Denies: Gallops, Rubs GI/Abdominal Exam: Normal Bowel Sounds, Soft, Non-Tender, No Organomegaly, No Distention, No Abnormal Bruit, No Mass, Other (Obese). No: Guarding (Female) Exam: Deferred Rectal (Female) Exam: Deferred Back Exam: Reports: Normal Inspection, Full Range of Motion. Denies: CVA Tenderness (L), CVA Tenderness (R), Muscle Spasm Extremities: Normal Inspection, Normal Range of Motion, Non-Tender, No Pedal Edema, Normal Capillary Refill. No: Jamir's Sign Skin: Reports: Warm, Dry, Intact, Other (Tattoos present). Denies: Ecchymosis Neurological: Reports: No New Focal Deficit, Other (No clinical orthostasis) Psy/Mental Status: Reports: Alert, Normal Affect, Normal Mood. Denies: Depressed, Agitated, Hallucinations, Withdrawal Symptoms *Q Meaningful Use (DIS) - VTE *Q VTE Criteria *Q: - Stroke *Q Stroke Criteria *Q: - AMI *Q AMI Criteria *Q:
--- NOTE | 2017-11-15 10:09 | PCM.SN ---
- Free Text/Narrative Note: Secondary to [employer] error discharge medication of Cipro 500 mg by mouth twice a day 10 days, #20 with no refills, was not present in the discharge summary. This prescription has been sent to her pharmacy via the E-prescription.
== END 2017-11-15 10:40 | disposition home or self-care (01) ==
LOC: LL.MS 22:23
PROVIDERS: ADMIT Emergency Medicine; ATTEND Family Medicine
DX: R10.84 Generalized abdominal pain (principal); N30.01 Acute cystitis with hematuria; E87.6 Hypokalemia; E28.2 Polycystic ovarian syndrome; E66.9 Obesity, unspecified; G47.30 Sleep apnea, unspecified; E88.09 Other disorders of plasma-protein metabolism, not elsewhere classified; F17.200 Nicotine dependence, unspecified, uncomplicated; Z90.49 Acquired absence of other specified parts of digestive tract; Z98.84 Bariatric surgery status; Z68.41 Body mass index [BMI] 40.0-44.9, adult; Z79.899 Other long term (current) drug therapy
CPT/HCPCS: 36415; 74019; 74022; 80053; 81001; 82150; 82272; 83036; 83690; 84550; 84703; 85025; 87086; 87338; 96361; 96365; 96366; 96372; 96375; 96376; A9270; C9113; G0378; J0744; J1885; J2405; J2550; J7030; J7050; S0028

== ENCOUNTER 2018-12-13 17:57 | Emergency (ER) | payer BC ==
[2018-12-13] MEDS ORDERED: LORazepam 2 MG/ML SDV IVPUSH ONE (18:08)
--- NOTE | 2018-12-13 18:08 | EDM.PDOC ---
ED HPI GENERAL MEDICAL PROBLEM - General Chief Complaint: Genitourinary Problem Stated Complaint: left flank pain, stent removal today Time Seen by Provider: 12/13/18 18:00 Source of Information: Reports: Patient, Family (), Old Records ([facility] EMR. No paper hospital chart available.), Other ( [facility] EMR) History Limitations: Reports: No Limitations - History of Present Illness INITIAL COMMENTS - FREE TEXT/NARRATIVE: Gwen was brought to the emergency room via private automobile by her for evaluation of sharp cramping 7/10 right CVA tenderness and pain after stent removal at [facility] at about 15:00 hours this afternoon. Note that patient did take her hydrocodone prior to the above procedure and 10 mg of Toradol at 17:00 hours with symptoms starting at about 16:30 hours this afternoon. She has been able to urinate since the above procedure with no gross hematuria or other UTI symptoms at this time. She does have some mild nausea without recent emesis. No recent history of other abdominal pain, heartburn, diarrhea, melena, gross hematochezia, or any food intolerance, including fatty foods, etc.. The patient also denies any recent fever, cough, wheezing, dyspnea , etc.. Onset: Today, Gradual Onset Date: 12/13/18 Onset Time: 16:30 Duration: Constant, Getting Worse Location: Reports: Abdomen (Left CVA). Denies: Head, Face, Neck, Chest, Back, Pelvis, Upper Extremity, Left, Upper Extremity, Right, Radiates to Quality: Reports: Same as Previous Episode, Sharp Severity: Moderate Improves with: Reports: None Worsens with: Reports: None Context: Reports: Other (As above). Denies: Sick Contact Associated Symptoms: Reports: Nausea/Vomiting (As above). 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, Other Medication(s) (As above) left flank Pain Score (Numeric/FACES): 7 - Related Data Allergies Allergy/AdvReac Type Severity Reaction Status Date / Time No Known Allergies Allergy Verified 12/13/18 17:58 Home Meds: Home Meds Biotin 10,000 mcg PO DAILY 11/13/17 [History] Cholecalciferol (Vitamin D3) [Vitamin D3] 5,000 unit PO DAILY 11/13/17 [History] Cyanocobalamin (Vitamin B-12) [Vitamin B-12] 1,500 mcg SL DAILY 11/13/17 [ History] Hyoscyamine [Levsin] 0.125 mg PO Q4H PRN 11/13/17 [History] Vitamin B Complex [Balanced B-50] 1 tab PO DAILY 11/13/17 [History] Non-Formulary Medication [NF Drug] 1 each PO DAILY 06/30/18 [History] Ondansetron [Zofran ODT] 4 mg PO Q6HR PRN #0 06/30/18 [Rx] Sennosides/Docusate Sodium [Senna-S] 1 - 2 each PO BEDTIME 06/30/18 [History] FLUoxetine HCl [Prozac] 40 mg PO DAILY 12/13/18 [History] Hydrocodone/Acetaminophen [Hydrocodon-Acetaminophen 5-325] 1 each PO Q6H PRN [History] Ketorolac [Toradol] 10 mg PO Q6H PRN 12/13/18 [History] Multivit-Minerals/Folic Acid [Centrum Multigummies] 150 mcg PO BID 12/13/18 [ History] Nitrofurantoin Monohyd/M-Cryst [Macrobid 100 mg Capsule] 100 mg PO BID 12/13/18 [History] Oxybutynin 10 mg PO DAILY 12/13/18 [History] Pantoprazole Sodium [Protonix] 40 mg PO BEDTIME 12/13/18 [History] Past Medical History HEENT History: Reports: Impaired Vision, Other (See Below). Denies: Allergic Rhinitis, Cataract, Glaucoma, Hard of Hearing, Macular Degeneration, Retinal Detachment Other HEENT History: She wears glasses. Cardiovascular History: Reports: None. Denies: Afib, Aneurysm, Arrhythmia, Blood Clots/VTE/DVT, Heart Murmur, High Cholesterol, Hypertension, PVD, Syncope Respiratory History: Reports: Intubation, Previous, Sleep Apnea, Other (See Below). Denies: Asthma, Bronchitis, Recurrent, COPD, Intubation, Difficult, PE , Pneumonia, Recurrent, Pneumothorax, TB Other Respiratory History: Patient is compliant with her CPAP. Gastrointestinal History: Reports: Cholelithiasis, Chronic Constipation, Gastritis, GERD, Hiatal Hernia, Other (See Below). Denies: Celiac Disease, Chronic Diarrhea, Fecal Incontinence, Hepatitis, Inflammatory Bowel Disease, Irritable Bowel Syndrome, Jaundice, Pancreatitis Other Gastrointestinal History: Note cholecystectomy in 2013 with additional gastric bypass surgery in 2017 as below. Genitourinary History: Reports: Hydronephrosis, Renal Calculus, UTI, Recurrent, Other (See Below). Denies: Acute Renal Failure, Chronic Renal Insuffiency, Retention, Urinary, STD, Urinary Incontinence Other Genitourinary History: History of recurrent bilateral urolithiasis initially at age 23 with additional episode in 2014 and last episode in November 2018. Chronic left renal nodule/cyst under observation with initial diagnosis on 08/30/18. RN CVOR History: Reports: . Denies: Dysfunctional Uterine Bleeding, Endometriosis, Fibroids : 1 Para: 1 LMP (Approximate): Other (See Below) Other RN CVOR History: LMP on 11/22/18. Full term as below without other complications during or delivery Musculoskeletal History: Reports: Arthritis, Back Pain, Chronic, Fracture, Osteoarthritis, Other (See Below). Denies: Amputation, Gout, Neck Pain, Chronic , RA, SLE Other Musculoskeletal History: Coccyx fracture 2001. Phalangeal fracture of digit #5 of the right foot in April 2018. Unknown type of right foot fractures in 1992 and 1994. Left wrist fracture in 1997. Neurological History: Reports: None. Denies: Cerebral Aneurysms, Concussion, CVA, Head Trauma, MS, Neuropathy, Peripheral, Parkinson's, Seizure, TIA, Vertigo Psychiatric History: Reports: Anxiety, Depression. Denies: Abuse, Victim of, ADD, ADHD, Addiction, Psych Hospitalization(s), PTSD, Suicide Attempt, Suicidal Ideation Endocrine/Metabolic History: Reports: Obesity/BMI 30+, Other (See Below). Denies: Diabetes, Gestational, Diabetes, Type I, Diabetes, Type II, Diabetes Mellitus, Type 3c, Hypothyroidism, IDDM Other Endocrine/Metabolic History: Hypomagnesemia. History of gastric bipass as below. Hematologic History: Reports: None. Denies: Anemia, Blood Transfusion(s), Iron Deficiency Immunologic History: Reports: None. Denies: AIDS, HIV, SLE Oncologic (Cancer) History: Reports: None. Denies: Basal Cell Carcinoma, Cervix , Colon, Hodgkin's Lymphoma, Leukemia, Lymphoma, Malignant Melanoma, Non-Hodgkin 's Lymphoma, Ovarian, Squamous Cell Carcinoma, Uterine Dermatologic History: Reports: None. Denies: Eczema, Psoriasis - Infectious Disease History Infectious Disease History: Reports: Chicken Pox. Denies: C-Difficile, Measles , Meningitis, Mononucleosis, MRSA, Mumps, Pertussis (Whooping Cough), Rheumatic Fever, Rubella, Scarlet Fever, Shingles, TB, VRE - Past Surgical History Head Surgeries/Procedures: Reports: None HEENT Surgical History: Reports: Oral Surgery, Other (See Below). Denies: Adenoidectomy, Cataract Surgery, Eye Surgery, Laser Surgery, LASIK, Myringotomy w Tube(s), Naso-Sinus Surgery, Tonsillectomy Other HEENT Surgeries/Procedures: Callery teeth extraction 4 in 1996. Multiple additional teeth extractions. Cardiovascular Surgical History: Reports: None. Denies: Varicose Respiratory Surgical History: Reports: None. Denies: Thoracentesis GI Surgical History: Reports: Bariatric Procedure, Cholecystectomy, EGD, Other ( See Below). Denies: Appendectomy, Colonoscopy, Hernia, Inguinal, Hernia Repair/ Other, Polypectomy Other GI Surgeries/Procedures: Laparoscopic Gilmer-en-Y with concomitant concomitant Antonio fundoplication in 2016. EGD in August 2018 with gastric pouch gastritis noted and apparent negative H. pylori biopsy at that time. Laparoscopic cholecystectomy in 2012. Female Surgical History: Reports: Section, Cystoscopy, Kidney stone extraction, Other (See Below). Denies: Breast Biopsy, D&C, Tubal Ligation Other Female Surgeries/Procedures: Cystoscopy with concomitant laser lithotripsy and stent placement in the left ureter on 11/24/18. Left ureteral stent removal on 12/13/18. LTCS at full-term in 2003 secondary to failure to progress. Endocrine Surgical History: Reports: None. Denies: Thyroid Biopsy Neurological Surgical History: Reports: None. Denies: C-Spine, Discectomy, Laminectomy, Lumbar Spine, Sacral Spine, Spinal Fusion, Vertebroplasty Musculoskeletal Surgical History: Reports: None. Denies: Arthroscopic Procedure , Carpal Tunnel, Ganglion Cyst, Joint Replacement, ORIF, Shoulder Surgery Oncologic Surgical History: Reports: None. Denies: Biopsy of Breast Dermatological Surgical History: Reports: None - Past Imaging History Past Imaging History: Reports: CAT Scan (CT scan of the abdomen and pelvis on and 11/08/17.), Ultrasound (Bilateral renal ultrasound on 11/21/18, 10/09/18 , and 07/03/18.) Social & Family History - Family History Family Medical History: Noncontributory - Tobacco Use Smoking Status *Q: Current Every Day Smoker Tobacco Use Within Last Twelve Months: Cigarettes Years of Tobacco use: 18 Packs/Tins Daily: 1 Packs/Tins Daily Comment: Started smoking at age 15 Used Tobacco, but Quit: No Smoking Cessation Information Provided To Patient: Yes Second Hand Smoke Exposure: Yes Source of Second Hand Smoke Exposure: smokes. Second Hand Smoke Education Provided: Yes - Caffeine Use Caffeine Use: Reports: Coffee (One cup every 6 months). Denies: Energy Drinks, Soda, Tea - Alcohol Use Alcohol Use History: Yes Days Per Week of Alcohol Use: 0 Number of Drinks Per Day: 2 Number of Drinks Per Day Comment: Usually mixed drinks. Drinks 1 time per month. No previous DWIs, problems with alcohol abuse, etc. Total Drinks Per Week: 0 Alcohol Use in Last Twelve Months: Yes Alcohol Use Frequency: Monthly - Recreational Drug Use Recreational Drug Use: No Drug Use in Last 12 Months: No Recreational Drug Type: Denies: Amphetamines (Speed), Cocaine, Heroin, Inhalants (Glues, Solvents, Aerosols), LSD (Acid), Marijuana/Hashish, Methamphetamine, Morphine - Living Situation & Occupation Living situation: Reports: (Second in 2014,), ( from first in 2007 with one child from this relationship.), with Family Occupation: Employed ([employer] at [employer]) ED ROS GENERAL - Review of Systems Review Of Systems: ROS reveals no pertinent complaints other than HPI. ED EXAM, GENERAL - Physical Exam Exam: See Below Exam Limited By: No Limitations General Appearance: Alert, WD/WN, No Apparent Distress Head: Atraumatic, Normocephalic Neck: Normal Inspection, Supple, Non-Tender, Full Range of Motion. No: Lymphadenopathy (L), Lymphadenopathy (R), Thyromegaly Respiratory/Chest: No Respiratory Distress, Lungs Clear, Normal Breath Sounds, No Accessory Muscle Use, Chest Non-Tender. No: Pleural Rub, Retractions Cardiovascular: Normal Peripheral Pulses, Regular Rate, Rhythm, No Edema, No Gallop, No JVD, No Murmur, No Rub. No: Gallop/S3, Gallop/S4, Friction Rub Peripheral Pulses: 2+: Radial (L), Radial (R) GI/Abdominal: Normal Bowel Sounds, Soft, Non-Tender, No Organomegaly, No Distention, No Abnormal Bruit, No Mass. No: Guarding (Female) Exam: Deferred Rectal (Female) Exam: Deferred Back Exam: Normal Inspection, Full Range of Motion. No: CVA Tenderness (L) (No palpation pain with history of colic/spasms), CVA Tenderness (R), Muscle Spasm Extremities: Normal Inspection, Normal Range of Motion, Non-Tender, No Pedal Edema, Normal Capillary Refill. No: Jamir's Sign Neurological: Alert, Oriented, CN II-XII Intact, Normal Cognition, Normal Gait, No Motor/Sensory Deficits Psychiatric: Normal Affect, Normal Mood Skin Exam: Warm, Dry, Intact, Normal Color, No Rash. No: Diaphoretic, Jaundice , Pallor, Wound/Incision Lymphatic: No Adenopathy Course - Vital Signs Last Recorded V/S: Last Vital Signs Temp 36.5 C 12/13/18 17:57 Pulse 61 12/13/18 18:33 Resp 18 12/13/18 17:57 BP 122/64 12/13/18 17:57 Pulse Ox 94 L 12/13/18 18:33 Vital Signs - 24 hr 12/13/18 12/13/18 17:57 18:33 Temperature [ 36.5 C Temporal] Pulse, 72 61 Peripheral [ Brachial] Respiratory 18 Rate Blood Pressure 122/64 [Upper Arm] O2 Sat by Pulse 100 94 L Oximetry - Orders/Labs/Meds Orders: Active Orders 24 hr Category Date Time Status Peripheral IV Care [RC] . DIRECTED Care 12/13/18 18:10 Active Sodium Chloride 0.9% [Saline Flush] Med 12/13/18 18:10 Active 10 ml FLUSH ASDIRECTED PRN Obtain Past Medical Record [OM.PC] Routine Oth 12/13/18 18:08 Active Peripheral IV Insertion Adult [OM.PC] Routine Oth 12/13/18 18:10 Ordered Medication Orders Sodium Chloride (Saline Flush) 10 ml FLUSH ASDIRECTED PRN PRN Reason: Keep Vein Open Last Admin: 12/13/18 18:19 Dose: 10 ml Labs: None Meds: Medications Generic Name Dose Route Start Last Admin Trade Name Freq PRN Reason Stop Dose Admin Sodium Chloride 10 ml 12/13/18 18:10 12/13/18 18:19 Saline Flush FLUSH 10 ml ASDIRECTED PRN Administration Keep Vein Open Discontinued Medications Generic Name Dose Route Start Last Admin Trade Name Davidq PRN Reason Stop Dose Admin Hydromorphone HCl 1 mg 12/13/18 18:09 12/13/18 18:24 Dilaudid IVPUSH 12/13/18 18:10 1 mg ONETIME ONE Administration Lactated Ringer's 1,000 mls @ 999 mls/hr 12/13/18 18:10 12/13/18 18:25 Ringers, Lactated IV 12/13/18 19:10 999 mls/hr .BOLUS ONE Administration Lorazepam 2 mg 12/13/18 18:08 12/13/18 18:19 Ativan IVPUSH 12/13/18 18:09 2 mg ONETIME ONE Administration Ondansetron HCl 4 mg 12/13/18 18:09 12/13/18 18:17 Zofran IVPUSH 12/13/18 18:10 4 mg ONETIME ONE Administration - Radiology Interpretation Free Text/Narrative:: None Departure - Departure Time of Disposition: 19:40 Disposition: Home, Self-Care 01 Condition: Good Clinical Impression: Lesion of left [place] kidney, Peptic reflux disease, Tobacco abuse counseling, Mixed anxiety depressive disorder Abdominal pain Qualifiers: Abdominal location: unspecified location Qualified Code(s): R10.9 - Unspecified abdominal pain Osteoarthritis Qualifiers: Osteoarthritis location: multiple joints Osteoarthritis type: primary Qualified Code(s): M15.0 - Primary generalized (osteo)arthritis Sleep apnea Qualifiers: Sleep apnea type: unspecified type Qualified Code(s): G47.30 - Sleep apnea, unspecified Urolithiasis Qualifiers: Urinary calculus location: kidney Qualified Code(s): N20.0 - Calculus of kidney - Discharge Information *PRESCRIPTION DRUG MONITORING PROGRAM REVIEWED*: Not Applicable *COPY OF PRESCRIPTION DRUG MONITORING REPORT IN PATIENT TYRESE: Not Applicable Instructions: Steps to Quit Smoking, [id number], Flank Pain, Adult, Easy-to- Read Referrals: Ana Ayoub TELEPRINTER [Primary Care Provider] - Forms: ED Department Discharge, ED Return to Work/School Form Additional Instructions: 1. Follow up with your regular provider in 1-4 days as needed, if symptoms persist. Bring these discharge instructions with you to that visit. 2. Tylenol 650 mg by mouth every 4 hours when necessary as directed. 3. Encourage oral fluids including cranberry juice, etc. as discussed. 4. Work excuse- See Form 5. Immediately after this visit verify that your cellular telephone's voicemail has been activated and is empty. Also verify that your home telephone 's answering machine is operating properly and has space to receive messages. Note that it is sometimes necessary for us to be able to contact you at a later date to discuss your medical care. 6. Please remember that we are ALWAYS here for you and want to answer any questions you may have. Feel free to call the hospital any time and we call you back NATALIE. 7. Sedation precautions with no driving, etc. for 18 hours because of emergency room medications. - Problem List & Annotations (1) Abdominal pain SNOMED Code(s): 12702458 Code(s): R10.9 - UNSPECIFIED ABDOMINAL PAIN Status: Acute Priority: High Annotation/Comment:: Colic type pain after stent removal earlier today as above. Overall good results with treatment in the emergency room. She has already been discharged on an antibiotic for today's procedure. Work excuse provided. Sedation precautions discussed. Qualifiers: Abdominal location: unspecified location Qualified Code(s): R10.9 - Unspecified abdominal pain (2) Osteoarthritis SNOMED Code(s): 240383465 Code(s): M19.90 - UNSPECIFIED OSTEOARTHRITIS, UNSPECIFIED SITE Status: Chronic Priority: Medium Annotation/Comment:: Stable by history Qualifiers: Osteoarthritis location: multiple joints Osteoarthritis type: primary Qualified Code(s): M15.0 - Primary generalized (osteo)arthritis (3) Peptic reflux disease SNOMED Code(s): 391342192 Code(s): K21.9 - GASTRO-ESOPHAGEAL REFLUX DISEASE WITHOUT ESOPHAGITIS Status: Chronic Priority: Medium Annotation/Comment:: Stable by history with current medical therapy. (4) Sleep apnea SNOMED Code(s): 20211202 Code(s): G47.30 - SLEEP APNEA, UNSPECIFIED Status: Chronic Priority: Medium Annotation/Comment:: Patient currently using CPAP. Qualifiers: Sleep apnea type: unspecified type Qualified Code(s): G47.30 - Sleep apnea , unspecified (5) Tobacco abuse counseling SNOMED Code(s): 360948485, 376973969, 206538985 Code(s): Z71.6 - TOBACCO ABUSE COUNSELING Status: Chronic Priority: Medium Annotation/Comment:: Patient and her her were strongly encouraged to discontinue tobacco use NATALIE. Tobacco cessation information provided. 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 in 6 months. (7) Mixed anxiety depressive disorder SNOMED Code(s): 035458687 Code(s): F41.8 - OTHER SPECIFIED ANXIETY DISORDERS Status: Chronic Priority: Medium Annotation/Comment:: Stable with current medical therapy. - Problem List Review Problem List Initiated/Reviewed/Updated: Yes - My Orders Last 24 Hours: My Active Orders 12/13/18 18:08 Obtain Past Medical Record [OM.PC] Routine 12/13/18 18:10 Peripheral IV Care [RC] . DIRECTED Sodium Chloride 0.9% [Saline Flush] 10 ml FLUSH ASDIRECTED PRN Peripheral IV Insertion Adult [OM.PC] Routine - Assessment/Plan Last 24 Hours: My Active Orders 12/13/18 18:08 Obtain Past Medical Record [OM.PC] Routine 12/13/18 18:10 Peripheral IV Care [RC] . DIRECTED Sodium Chloride 0.9% [Saline Flush] 10 ml FLUSH ASDIRECTED PRN Peripheral IV Insertion Adult [OM.PC] Routine Assessment:: As above Plan: As above. Extensive precautions were given to the patient and her , who are in agreement with the treatment plan. See Patient Instructions for further treatment and plan.
[2018-12-13] MEDS ORDERED: Ondansetron 4 MG/2 ML SDV IVPUSH ONE (18:09)
[2018-12-13] MEDS ORDERED: HYDROmorphone 1 MG/ML Syringe IVPUSH ONE (18:09)
[2018-12-13] MEDS ORDERED: Lactated Ringers 1,000 ML IV ONE (18:10)
[2018-12-13] MEDS ORDERED: Sodium Chloride 0.9% 10 ML Syringe FLUSH PRN (18:10)
== END 2018-12-13 19:40 | disposition home or self-care (01) ==
LOC: LL.ED 17:57
DX: N20.0 Calculus of kidney (principal); F17.210 Nicotine dependence, cigarettes, uncomplicated; K21.9 Gastro-esophageal reflux disease without esophagitis; Z71.6 Tobacco abuse counseling; F41.8 Other specified anxiety disorders; M15.0 Primary generalized (osteo)arthritis; G47.30 Sleep apnea, unspecified; Z79.899 Other long term (current) drug therapy
CPT/HCPCS: 96361; 96374; 96375; 99284-25; J1170; J2060; J2405; J7120

== ENCOUNTER 2019-11-27 16:05 | Emergency (ER) | payer BC ==
[2019-11-27] MEDS ORDERED: Famotidine 20 MG/2 ML SDV IVPUSH ONE (16:15)
[2019-11-27] MEDS ORDERED: Sodium Chloride 0.9% 10 ML Syringe FLUSH PRN (16:15)
[2019-11-27] MEDS ORDERED: Pantoprazole 40 MG Vial IVPUSH ONE (16:15)
--- NOTE | 2019-11-27 16:48 | EDM.PDOC ---
ED HPI GENERAL MEDICAL PROBLEM - General Chief Complaint: Abdominal Pain Stated Complaint: abdominal pain Time Seen by Provider: 11/27/19 16:05 Source of Information: Reports: Patient ([facility] EMR. No paper hospital chart available.), Family (), Old Records ([facility] chart/EMR), Other (Limited records from [facility], which the patient provided.) History Limitations: Reports: No Limitations - History of Present Illness INITIAL COMMENTS - FREE TEXT/NARRATIVE: The patient was brought to the emergency room via private automobile by her for evaluation of 5/10 sharp mid epigastric abdominal pain associated with some nausea without emesis with symptoms starting at about 14:30 hours this afternoon and similar to multiple previous episodes after her previous gastric bypass surgery as below. She denies any known exposure to infection, food poisoning, etc. and did tolerate lunch well the same food eaten for supper yesterday. Patient did take 1 sublingual Zofran tablet, Tums, and Gas-X with only some improvement of her symptoms. She denies any gross hematuria, colic, or other UTI symptoms. No recent history of other abdominal pain, heartburn, emesis, diarrhea, melena, gross hematochezia, or any food intolerance, including fatty foods, etc. with normal bowel movement earlier today. No history of gross hematuria, colic, or other UTI symptoms. The patient also denies any recent fever, cough, wheezing, dyspnea, etc... The patient also denies any recent fever, cough, wheezing, dyspnea, etc.. Onset: Today, Sudden Onset Date: 11/27/19 Onset Time: 14:30 Duration: Constant Location: Reports: Abdomen. Denies: Head, Face, Neck, Chest, Pelvis, Upper Extremity, Left, Upper Extremity, Right, Lower Extremity, Left, Lower Extremity , Right, Radiates to Quality: Reports: Same as Previous Episode, Sharp, Stabbing Severity: Moderate Improves with: Reports: Medication Worsens with: Reports: None Context: Reports: Other (As above). Denies: Sick Contact, Trauma Associated Symptoms: Reports: Nausea/Vomiting (No emesis). 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) (As above) Upper Abdominal Pain Score (Numeric/FACES): 5 - Related Data Allergies Allergy/AdvReac Type Severity Reaction Status Date / Time No Known Allergies Allergy Verified 11/27/19 16:25 Home Meds: Home Meds Cholecalciferol (Vitamin D3) [Vitamin D3] 5,000 unit PO DAILY 11/13/17 [History] Cyanocobalamin (Vitamin B-12) [Vitamin B-12] 1,500 mcg SL DAILY 11/13/17 [ History] Hyoscyamine [Levsin] 0.125 mg PO Q4H PRN 11/13/17 [History] Vitamin B Complex [Balanced B-50] 1 tab PO DAILY 11/13/17 [History] Non-Formulary Medication [NF Drug] 1 each PO DAILY 06/30/18 [History] Ondansetron [Zofran ODT] 4 mg PO Q6HR PRN #0 06/30/18 [Rx] Sennosides/Docusate Sodium [Senna-S] 1 - 2 each PO BEDTIME 06/30/18 [History] FLUoxetine HCl [Prozac] 40 mg PO DAILY 12/13/18 [History] Multivit-Minerals/Folic Acid [Centrum Multigummies] 150 mcg PO BID 12/13/18 [ History] Pantoprazole Sodium [Protonix] 40 mg PO BID 12/13/18 [History] Folic Acid 0.8 mg PO DAILY 11/27/19 [History] Liraglutide [Victoza] 0.6 ml SUBCUT DAILY 11/27/19 [History] Magnesium Oxide 800 mg PO QPM #30 tab 11/27/19 [Rx] Past Medical History HEENT History: Reports: Impaired Vision, Other (See Below). Denies: Allergic Rhinitis, Cataract, Glaucoma, Hard of Hearing, Macular Degeneration, Otitis Media, Retinal Detachment Other HEENT History: She wears glasses. Cardiovascular History: Reports: None. Denies: Afib, Aneurysm, Arrhythmia, Blood Clots/VTE/DVT, CAD, Heart Murmur, High Cholesterol, Hypertension, OH, PVD , Syncope Respiratory History: Reports: Intubation, Previous, Sleep Apnea, Other (See Below). Denies: Asthma, COPD, Intubation, Difficult, PE, Pneumothorax, TB Other Respiratory History: Patient is compliant with her CPAP. Gastrointestinal History: Reports: Cholelithiasis, Chronic Constipation, Gastritis, GERD, Hiatal Hernia, Other (See Below). Denies: Bowel Obstruction, Celiac Disease, Chronic Diarrhea, Colon Polyp, Fecal Incontinence, GI Bleed, Hepatitis, Irritable Bowel Syndrome, Jaundice, Pancreatitis, PUD Other Gastrointestinal History: Chronic intermittent abdominal pain likely secondary to adhesions from previous surgeries as below. Note cholecystectomy in 2011 with additional gastric bypass surgery in 2017 as below. Genitourinary History: Reports: Hydronephrosis, Renal Calculus, UTI, Recurrent, Other (See Below). Denies: Acute Renal Failure, Chronic Renal Insuffiency, Retention, Urinary, STD, Urinary Incontinence Other Genitourinary History: History of recurrent bilateral urolithiasis initially at age 23 with additional episode in 2014 and last episode on with spontaneous passage 2018. Chronic left renal nodule/hemorrhagic cyst under observation with initial diagnosis on 08/30/[address] scans, MRI, etc.. TONG SETTER History: Reports: Polycystic Ovaries, . Denies: Dysfunctional Uterine Bleeding, Endometriosis, Fibroids, Spontaneous : 1 Para: 1 Other TONG SETTER History: LMP on 2 weeks ago was normal. Full term as below without other complications during or delivery Musculoskeletal History: Reports: Arthritis, Back Pain, Chronic, Fracture, Osteoarthritis, Other (See Below). Denies: Amputation, Fibromyalgia, Gout, Neck Pain, Chronic, RA, SLE Other Musculoskeletal History: Coccyx fracture 2001. Phalangeal fracture of digit #5 of the right foot in April 2018. Unknown type of right foot fractures in 1992 and 1994. Left wrist fracture in 1997. Neurological History: Reports: None. Denies: Cerebral Aneurysms, Concussion, CVA, Headaches, Chronic, Head Trauma, Migraines, MS, Parkinson's, Seizure, TIA, Vertigo Psychiatric History: Reports: Anxiety, Depression. Denies: Abuse, Victim of, ADD, ADHD, Addiction, Mood Swings, Psych Hospitalization(s), Suicide Attempt, Suicidal Ideation Endocrine/Metabolic History: Reports: Hypomagnesemia, Obesity/BMI 30+, Other ( See Below). Denies: Diabetes, Gestational, Diabetes, Type I, Diabetes, Type II , Diabetes Mellitus, Type 3c, Hypothyroidism, IDDM Other Endocrine/Metabolic History: Hirsutism. Hypoalbuminemia. Hematologic History: Reports: None. Denies: Anemia, Blood Transfusion(s), Iron Deficiency Immunologic History: Reports: None. Denies: AIDS, HIV, SLE Oncologic (Cancer) History: Reports: None. Denies: Basal Cell Carcinoma, Breast , Cervix, Colon, Hodgkin's Lymphoma, Leukemia, Lymphoma, Malignant Melanoma, Non -Hodgkin's Lymphoma, Ovarian, Squamous Cell Carcinoma, Uterine Dermatologic History: Reports: None. Denies: Eczema, Psoriasis - Infectious Disease History Infectious Disease History: Reports: Chicken Pox. Denies: C-Difficile, Measles , Meningitis, Mononucleosis, MRSA, Mumps, Pertussis (Whooping Cough), Rheumatic Fever, Rubella, Scarlet Fever, Shingles, TB, VRE - Past Surgical History Head Surgeries/Procedures: Reports: None HEENT Surgical History: Reports: Oral Surgery, Other (See Below). Denies: Adenoidectomy, Cataract Surgery, Eye Surgery, Laser Surgery, LASIK, Myringotomy w Tube(s), Naso-Sinus Surgery, Tonsillectomy Other HEENT Surgeries/Procedures: [place] teeth extraction 4 in 1996. Multiple additional teeth extractions. Cardiovascular Surgical History: Reports: None. Denies: Varicose Respiratory Surgical History: Reports: None. Denies: Thoracentesis GI Surgical History: Reports: Bariatric Procedure, Cholecystectomy, EGD, Antonio Fundoplication, Other (See Below). Denies: Appendectomy, Hernia, Abdominal, Hernia, Inguinal, Hernia Repair/Other, Polypectomy Other GI Surgeries/Procedures: Laparoscopic Gilmer-en-Y with concomitant concomitant Antonio fundoplication and paraesophageal hernia repair on 07/04/17. EGD with biopsy on 06/01/18 with gastric pouch gastritis noted and apparent negative H. pylori biopsy at that time. Laparoscopic cholecystectomy in on 07/05. Female Surgical History: Reports: Section, Cystoscopy, Kidney stone extraction, Other (See Below) Other Female Surgeries/Procedures: Cystoscopy with left ureteral stone removal on 12/13/18. Previous cystoscopy with left ureteral stone removal with concomitant laser lithotripsy and stent placement in the right ureter on . LTCS at full-term in 2004 secondary to failure to progress. Endocrine Surgical History: Reports: None Neurological Surgical History: Reports: None. Denies: C-Spine, Discectomy, Laminectomy, Lumbar Spine, Sacral Spine, Spinal Fusion, Thoracic Spine, Vertebroplasty Musculoskeletal Surgical History: Reports: None. Denies: Arthroscopic Procedure , Carpal Tunnel, Ganglion Cyst, Joint Replacement, ORIF, Shoulder Surgery Oncologic Surgical History: Reports: None Dermatological Surgical History: Reports: None - Past Imaging History Past Imaging History: Reports: CAT Scan (CT scan of the abdomen and pelvis on , 06/30/18 and 11/08/17.), MRI ( abdomen on 05/28/19), Sleep Study, Ultrasound (Bilateral renal ultrasound on 08/29/19, 11/21/18, 10/09/18, and .) Social & Family History - Family History Family Medical History: Noncontributory - Tobacco Use Smoking Status *Q: Current Every Day Smoker Tobacco Use Within Last Twelve Months: Cigarettes Years of Tobacco use: 19 Packs/Tins Daily: 0.5 Packs/Tins Daily Comment: She started smoking at age 15 with maximum use of one pack per day. Used Tobacco, but Quit: No Smoking Cessation Information Provided To Patient: Yes Second Hand Smoke Exposure: Yes Source of Second Hand Smoke Exposure: smokes Second Hand Smoke Education Provided: Yes - Caffeine Use Caffeine Use: Reports: Coffee (1 cup every 6 months). Denies: Energy Drinks, Soda, Tea - Alcohol Use Alcohol Use History: Yes Days Per Week of Alcohol Use: 0 Number of Drinks Per Day: 2 Number of Drinks Per Day Comment: Usually mixed drinks about once per month. No previous DWIs, problems with alcohol abuse, etc. 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 ED EXAM, GI/ABD - Physical Exam Exam: See Below Exam Limited By: No Limitations General Appearance: Alert, WD/WN, No Apparent Distress Eyes: Bilateral: Normal Appearance (Patient wearing glasses. No nystagmus), EOMI (PERRLA) Ears: Normal External Exam, Normal Canal, Hearing Grossly Normal, Normal TMs Nose: Normal Inspection, Normal Mucosa, No Blood Throat/Mouth: Normal Inspection, Normal Lips, Normal Teeth (Missing teeth multiple), Normal Gums, Normal Oropharynx, Normal Voice, No Airway Compromise. No: Dysphagia, Inflammation, Perioral Cyanosis Head: Atraumatic, Normocephalic. No: Facial Swelling, Facial Tenderness, Sinus Tenderness Neck: Normal Inspection, Supple, Non-Tender, Full Range of Motion. No: Carotid Bruit, Lymphadenopathy (L), Lymphadenopathy (R), Thyromegaly Respiratory/Chest: No Respiratory Distress, Lungs Clear, Normal Breath Sounds, No Accessory Muscle Use, Chest Non-Tender. No: Pleural Rub, Retractions Cardiovascular: Normal Peripheral Pulses, Regular Rate, Rhythm, No Edema, No Gallop, No JVD, No Murmur, No Rub. No: Gallop/S3, Gallop/S4, Friction Rub GI/Abdominal Exam: Normal Bowel Sounds, Soft, No Organomegaly, No Distention, No Abnormal Bruit, No Mass, Pelvis Stable, Tender (Mild mid superior epigastric palpation pain), Other (Obese). No: Guarding, Rigid, Rebound (Female) Exam: Deferred Rectal (Female) Exam: Deferred Back Exam: Normal Inspection, Full Range of Motion. No: CVA Tenderness (L), CVA Tenderness (R), Muscle Spasm Extremities: Normal Inspection, Normal Range of Motion, Non-Tender, No Pedal Edema, Normal Capillary Refill. No: Jamir's Sign Neurological: Alert, Oriented, CN II-XII Intact, Normal Cognition, Normal Gait, Normal Reflexes, No Motor/Sensory Deficits Psychiatric: Normal Affect, Normal Mood Skin Exam: Warm, Dry, Intact, Normal Color, No Rash. No: Diaphoretic, Ecchymosis, Jaundice, Pallor, Petechiae, Wound/Incision Lymphatic: No Adenopathy Course - Vital Signs Last Recorded V/S: Last Vital Signs Temp 36.7 C 11/27/19 16:12 Pulse 76 11/27/19 16:56 Resp 18 11/27/19 16:12 BP 109/67 11/27/19 16:56 Pulse Ox 96 11/27/19 16:56 Vital Signs - 24 hr 11/27/19 11/27/19 11/27/19 16:12 16:38 16:56 Temperature [ 36.7 C Temporal] Pulse, 79 77 76 Peripheral [ Right Pulse Oximetry] Respiratory 18 Rate Blood Pressure 145/88 H 107/65 109/67 [Left Upper Arm ] O2 Sat by Pulse 100 97 96 Oximetry - Orders/Labs/Meds Orders: Active Orders 24 hr Category Date Time Status Peripheral IV Care [RC] . DIRECTED Care 11/27/19 16:16 Active Nothing Per Oral Diet [DIET] Diet 11/27/19 Breakfast Active Abdomen Series w Chest 1V [CR] Stat Exams 11/27/19 16:15 Taken CULTURE URINE [RM] Stat Lab 11/27/19 17:30 Received Sodium Chloride 0.9% [Saline Flush] Med 11/27/19 16:15 Active 10 ml FLUSH ASDIRECTED PRN Obtain Past Medical Record [OM.PC] Urgent Oth 11/27/19 16:15 Active Peripheral IV Insertion Adult [OM.PC] Stat Oth 11/27/19 16:15 Ordered Resuscitation Status Stat Resus Stat 11/27/19 16:15 Ordered Medication Orders Sodium Chloride (Saline Flush) 10 ml FLUSH ASDIRECTED PRN PRN Reason: Keep Vein Open Last Admin: 11/27/19 16:32 Dose: 10 ml Labs: Laboratory Tests 11/27/19 11/27/19 11/27/19 Range/Units 16:25 16:25 16:25 WBC 7.5 (4.0-10.2) K/uL RBC 4.49 (3.77-5.09) M/uL Hgb 14.4 (11.7-15.5) g/dL Hct 42.4 (34.0-46.0) % MCV 94.4 (84.0-98.0) fL MCH 32.1 (28.2-33.3) pg MCHC 34.0 (31.7-36.0) g/dL RDW 12.5 (11.2-14.1) % Plt Count 215 (150-350) K/uL Neut % (Auto) 62.6 (45.0-80.0) % Lymph % (Auto) 27.8 (10.0-50.0) % [place] % (Auto) 7.2 (2.0-14.0) % Eos % (Auto) 2.3 (0.0-5.0) % Baso % (Auto) 0.1 (0.0-2.0) % Neut # (Auto) 4.66 (1.40-7.00) K/uL Lymph # (Auto) 2.07 (0.50-3.50) K/uL [place] # (Auto) 0.54 (0.00-1.00) K/uL Eos # (Auto) 0.17 (0.00-0.50) K/uL Baso # (Auto) 0.01 (0.00-0.20) K/uL PT 10.1 (9.5-12.0) SEC INR 1.0 APTT 27.9 (24.5-32.8) SEC Sodium (136-145) mmol/L Potassium (3.5-5.1) mmol/L Chloride (98-107) mmol/L Carbon Dioxide (21.0-32.0) mmol/L BUN (7-18) mg/dL Creatinine (0.51-1.17) mg/dL Est Cr Clr Drug Dosing Estimated GFR (MDRD) mL/min Glucose (74-106) mg/dL Lactic Acid (0.4-2.0) mmol/L Uric Acid (2.6-7.2) mg/dL Calcium (8.5-10.1) mg/dL Magnesium (1.8-2.4) mg/dL Total Bilirubin (0.2-1.0) mg/dL AST (15-37) U/L ALT (12-78) U/L Alkaline Phosphatase (46-116) IU/L Total Protein (6.4-8.2) g/dL Albumin (3.4-5.0) g/dL Amylase 43 (25-115) U/L Lipase (73-393) U/L HCG, Qual (NEGATIVE) Specimen Type Urine Color Urine Appearance Urine pH (5.0-9.0) Ur Specific [place] (1.005-1.030) Urine Protein (NEGATIVE) mg/dL Urine Glucose (UA) (NEGATIVE) mg/dL Urine Ketones (NEGATIVE) mg/dL Urine Occult Blood (NEGATIVE) Urine Nitrite (NEGATIVE) Urine Bilirubin (NEGATIVE) Urine Urobilinogen (0.2-1.0) E.U./dL Ur Leukocyte Esterase (NEGATIVE) Urine RBC /HPF Urine WBC /HPF Ur Epithelial Cells /LPF Urine Bacteria (NONE TO FEW) /HPF 11/27/19 11/27/19 11/27/19 Range/Units 16:25 16:25 16:25 WBC (4.0-10.2) K/uL RBC (3.77-5.09) M/uL Hgb (11.7-15.5) g/dL Hct (34.0-46.0) % MCV (84.0-98.0) fL MCH (28.2-33.3) pg MCHC (31.7-36.0) g/dL RDW (11.2-14.1) % Plt Count (150-350) K/uL Neut % (Auto) (45.0-80.0) % Lymph % (Auto) (10.0-50.0) % [place] % (Auto) (2.0-14.0) % Eos % (Auto) (0.0-5.0) % Baso % (Auto) (0.0-2.0) % Neut # (Auto) (1.40-7.00) K/uL Lymph # (Auto) (0.50-3.50) K/uL [place] # (Auto) (0.00-1.00) K/uL Eos # (Auto) (0.00-0.50) K/uL Baso # (Auto) (0.00-0.20) K/uL PT (9.5-12.0) SEC INR APTT (24.5-32.8) SEC Sodium 140 (136-145) mmol/L Potassium 3.9 (3.5-5.1) mmol/L Chloride 104 (98-107) mmol/L Carbon Dioxide 26.6 (21.0-32.0) mmol/L BUN 21 H (7-18) mg/dL Creatinine 0.68 (0.51-1.17) mg/dL Est Cr Clr Drug Dosing TNP Estimated GFR (MDRD) > 60 mL/min Glucose 84 (74-106) mg/dL Lactic Acid 0.9 (0.4-2.0) mmol/L Uric Acid 2.5 L (2.6-7.2) mg/dL Calcium 9.0 (8.5-10.1) mg/dL Magnesium 1.7 L (1.8-2.4) mg/dL Total Bilirubin 0.5 (0.2-1.0) mg/dL AST 28 (15-37) U/L ALT 39 (12-78) U/L Alkaline Phosphatase 87 (46-116) IU/L Total Protein 7.0 (6.4-8.2) g/dL Albumin 4.0 (3.4-5.0) g/dL Amylase (25-115) U/L Lipase 98 (73-393) U/L HCG, Qual Negative (NEGATIVE) Specimen Type Urine Color Urine Appearance Urine pH (5.0-9.0) Ur Specific [place] (1.005-1.030) Urine Protein (NEGATIVE) mg/dL Urine Glucose (UA) (NEGATIVE) mg/dL Urine Ketones (NEGATIVE) mg/dL Urine Occult Blood (NEGATIVE) Urine Nitrite (NEGATIVE) Urine Bilirubin (NEGATIVE) Urine Urobilinogen (0.2-1.0) E.U./dL Ur Leukocyte Esterase (NEGATIVE) Urine RBC /HPF Urine WBC /HPF Ur Epithelial Cells /LPF Urine Bacteria (NONE TO FEW) /HPF 11/27/19 Range/Units 17:30 WBC (4.0-10.2) K/uL RBC (3.77-5.09) M/uL Hgb (11.7-15.5) g/dL Hct (34.0-46.0) % MCV (84.0-98.0) fL MCH (28.2-33.3) pg MCHC (31.7-36.0) g/dL RDW (11.2-14.1) % Plt Count (150-350) K/uL Neut % (Auto) (45.0-80.0) % Lymph % (Auto) (10.0-50.0) % [place] % (Auto) (2.0-14.0) % Eos % (Auto) (0.0-5.0) % Baso % (Auto) (0.0-2.0) % Neut # (Auto) (1.40-7.00) K/uL Lymph # (Auto) (0.50-3.50) K/uL [place] # (Auto) (0.00-1.00) K/uL Eos # (Auto) (0.00-0.50) K/uL Baso # (Auto) (0.00-0.20) K/uL PT (9.5-12.0) SEC INR APTT (24.5-32.8) SEC Sodium (136-145) mmol/L Potassium (3.5-5.1) mmol/L Chloride (98-107) mmol/L Carbon Dioxide (21.0-32.0) mmol/L BUN (7-18) mg/dL Creatinine (0.51-1.17) mg/dL Est Cr Clr Drug Dosing Estimated GFR (MDRD) mL/min Glucose (74-106) mg/dL Lactic Acid (0.4-2.0) mmol/L Uric Acid (2.6-7.2) mg/dL Calcium (8.5-10.1) mg/dL Magnesium (1.8-2.4) mg/dL Total Bilirubin (0.2-1.0) mg/dL AST (15-37) U/L ALT (12-78) U/L Alkaline Phosphatase (46-116) IU/L Total Protein (6.4-8.2) g/dL Albumin (3.4-5.0) g/dL Amylase (25-115) U/L Lipase (73-393) U/L HCG, Qual (NEGATIVE) Specimen Type Urinvoid Urine Color [place] Urine Appearance Clear Urine pH 5.5 (5.0-9.0) Ur Specific [place] 1.025 (1.005-1.030) Urine Protein Negative (NEGATIVE) mg/dL Urine Glucose (UA) Negative (NEGATIVE) mg/dL Urine Ketones 40 H (NEGATIVE) mg/dL Urine Occult Blood Negative (NEGATIVE) Urine Nitrite Negative (NEGATIVE) Urine Bilirubin Negative (NEGATIVE) Urine Urobilinogen 0.2 (0.2-1.0) E.U./dL Ur Leukocyte Esterase Negative (NEGATIVE) Urine RBC Not seen /HPF Urine WBC 0-5 /HPF Ur Epithelial Cells Many H /LPF Urine Bacteria Moderate H (NONE TO FEW) /HPF Urine specimen set up for culture and sensitivity Meds: Medications Generic Name Dose Route Start Last Admin Trade Name Liam PRN Reason Stop Dose Admin Sodium Chloride 10 ml 11/27/19 16:15 11/27/19 16:32 Saline Flush FLUSH 10 ml ASDIRECTED PRN Administration Keep Vein Open Discontinued Medications Generic Name Dose Route Start Last Admin Trade Name Liam PRN Reason Stop Dose Admin Famotidine 40 mg 11/27/19 16:15 11/27/19 16:32 Pepcid IVPUSH 11/27/19 16:16 40 mg ONETIME ONE Administration Magnesium Citrate 0 ml 11/27/19 17:18 11/27/19 18:02 Citrate Of Magnesia PO 11/27/19 17:19 296 ml ONETIME ONE Administration Pantoprazole Sodium 40 mg 11/27/19 16:15 11/27/19 16:37 Protonix Iv IVPUSH 11/27/19 16:16 40 mg ONETIME ONE Administration Polyethylene Glycol 17 gm 11/27/19 17:18 11/27/19 18:01 Miralax PO 11/27/19 17:19 17 gm ONETIME ONE Administration - Radiology Interpretation Free Text/Narrative:: Acute abdominal x-rays shows mild to moderate increased bowel gaseous pattern with no fluid levels or free air, however possible beginning ileus and/or obstructive pattern. Moderate diffuse stool. Surgical clips noted in right upper quadrant. Mild pulmonary obstructive disease with no cardiomegaly, CHF, pulmonary infiltrates, pneumothorax, etc. Mild osteoarthritic changes in the spine. Departure - Departure Time of Disposition: 18:10 Disposition: Home, Self-Care 01 Condition: Good Clinical Impression: Abdominal pain, Osteoarthritis, Peptic reflux disease, Tobacco abuse counseling , Hypomagnesemia, Mixed anxiety depressive disorder - Discharge Information *PRESCRIPTION DRUG MONITORING PROGRAM REVIEWED*: Not Applicable *COPY OF PRESCRIPTION DRUG MONITORING REPORT IN PATIENT TYRESE: Not Applicable Prescriptions: Magnesium Oxide 800 mg PO QPM #30 tab Instructions: Abdominal Pain, Adult, Aeps-yl-[id number] Referrals: Ana Ayoub NP [Primary Care Provider] - Forms: ED Department Discharge, ED Return to Work/School Form Additional Instructions: 1. Followup with your regular provider in 2-3 days as directed for reevaluation and recommended repeat CBC, comprehensive metabolic panel, magnesium level, amylase, lipase and acute abdominal x-rays. Bring these discharge instructions with you to that visit. 2. [place] diet including encouragement of oral fluids such as sports drinks, etc. for 24-48 hours as directed. Advance to high-fiber, heart healthy diet as tolerated thereafter. 3. Recommended treatment goal of an excellent bowel movement every single day with adjustments of your current medications, diet, etc. by your regular provider depending on your clinical course. 4. Work excuse- See Form 5. Immediately after this visit verify that your cellular telephone's voicemail has been activated and is empty. Also verify that your home telephone 's answering machine is operating properly and has space to receive messages. Note that it is sometimes necessary for us to be able to contact you at a later date to discuss your medical care 6. Please remember that we are ALWAYS here for you and want to answer any questions you may have. Feel free to call the hospital any time and we call you back NATALIE. Sepsis Event Note - Evaluation Sepsis Screening Result: No Definite Risk - Focused Exam Vital Signs: Vital Signs Temp Pulse Resp BP Pulse Ox 11/27/19 16:56 76 109/67 96 11/27/19 16:38 77 107/65 97 11/27/19 16:12 36.7 C 79 18 145/88 H 100 Date Exam was Performed: 11/27/19 Time Exam was Performed: 19:10 - Problem List & Annotations (1) Abdominal pain SNOMED Code(s): 39518158 Code(s): R10.9 - UNSPECIFIED ABDOMINAL PAIN Status: Acute Priority: High Current Visit: Yes Annotation/Comment:: Long history of intermittent chronic abdominal pain since gastric bypass surgery likely secondary to abdominal lesions and constipation. She has been noncompliant with her previous magnesium oxide therapy, which was reinitiated today. Proper diet, goal of daily excellent bowel movements, etc. were extensively discussed. Work excuse provided. Close follow-up by regular provider as per discharge instructions. Note recent CT scan of the abdomen and pelvis on 11/12/19. Mild ketonuria today with oral fluids to be encouraged. No history of colic or current UTI symptoms. Magnesium oxide and MiraLAX given in the emergency room prior to discharge. Qualifiers: Abdominal location: periumbilical Qualified Code(s): R10.33 - Periumbilical pain (2) Osteoarthritis SNOMED Code(s): 202468242 Code(s): M19.90 - UNSPECIFIED OSTEOARTHRITIS, UNSPECIFIED SITE Status: Chronic Priority: Medium Current Visit: Yes Annotation/Comment:: Stable by history Qualifiers: Osteoarthritis location: multiple joints Osteoarthritis type: primary Qualified Code(s): M15.0 - Primary generalized (osteo)arthritis (3) Peptic reflux disease SNOMED Code(s): 789012926 Code(s): K21.9 - GASTRO-ESOPHAGEAL REFLUX DISEASE WITHOUT ESOPHAGITIS Status: Chronic Priority: Medium Current Visit: Yes Annotation/Comment:: High-dose IV Pepcid and IV Protonix given as GI prophylaxis. Otherwise, stable by history with current medical therapy. (4) Tobacco abuse counseling SNOMED Code(s): 647395216, 266329648, 356100428 Code(s): Z71.6 - TOBACCO ABUSE COUNSELING Status: Chronic Priority: Medium Current Visit: Yes Annotation/Comment:: Patient and her her were once again strongly encouraged to discontinue tobacco use NATALIE. Tobacco cessation information provided. (5) Mixed anxiety depressive disorder SNOMED Code(s): 506057820 Code(s): F41.8 - OTHER SPECIFIED ANXIETY DISORDERS Status: Chronic Priority: Medium Current Visit: Yes Annotation/Comment:: Stable with current medical therapy. (6) Hypomagnesemia SNOMED Code(s): 730389784 Code(s): E83.42 - HYPOMAGNESEMIA Status: Acute Priority: High Current Visit: Yes Annotation/Comment:: As above. Close follow-up by her regular provider. - Problem List Review Problem List Initiated/Reviewed/Updated: Yes - My Orders Last 24 Hours: My Active Orders 11/27/19 16:15 Abdomen Series w Chest 1V [CR] Stat Sodium Chloride 0.9% [Saline Flush] 10 ml FLUSH ASDIRECTED PRN Obtain Past Medical Record [OM.PC] Urgent Peripheral IV Insertion Adult [OM.PC] Stat Resuscitation Status Stat 11/27/19 16:16 Peripheral IV Care [RC] . DIRECTED 11/27/19 17:30 CULTURE URINE [RM] Stat 11/27/19 Breakfast Nothing Per Oral Diet [DIET] - Assessment/Plan Last 24 Hours: My Active Orders 11/27/19 16:15 Abdomen Series w Chest 1V [CR] Stat Sodium Chloride 0.9% [Saline Flush] 10 ml FLUSH ASDIRECTED PRN Obtain Past Medical Record [OM.PC] Urgent Peripheral IV Insertion Adult [OM.PC] Stat Resuscitation Status Stat 11/27/19 16:16 Peripheral IV Care [RC] . DIRECTED 11/27/19 17:30 CULTURE URINE [RM] Stat 11/27/19 Breakfast Nothing Per Oral Diet [DIET] Assessment:: As above Plan: As above. Extensive precautions were given to the patient and her , who are in agreement with the treatment plan. See Patient Instructions for further treatment and plan.
[2019-11-27 16:49] LABS: CHLORIDE,CL 104 mmol/L (98-107); SODIUM,NA 140 mmol/L (136-145)
[2019-11-27 16:51] LABS: PTT,PARTIAL THROMBOPLSTIN TIME 27.9 SEC (24.5-32.8)
[2019-11-27] MEDS ORDERED: Polyethylene Glycol 3350 Powder 17 GM Packet PO ONE (17:18)
[2019-11-27] MEDS ORDERED: Magnesium Citrate Solution 296 ML Bottle PO ONE (17:18)
== END 2019-11-27 18:10 | disposition home or self-care (01) ==
LOC: LL.ED 16:05
DX: K21.9 Gastro-esophageal reflux disease without esophagitis (principal); E83.42 Hypomagnesemia; F41.8 Other specified anxiety disorders; M19.90 Unspecified osteoarthritis, unspecified site; F41.9 Anxiety disorder, unspecified; F32.9 Major depressive disorder, single episode, unspecified; E66.9 Obesity, unspecified; Z71.6 Tobacco abuse counseling; F17.210 Nicotine dependence, cigarettes, uncomplicated
CPT/HCPCS: 36415; 74022; 80053; 81001; 82150; 83605; 83690; 83735; 84550; 84703; 85025; 85610; 85730; 87086; 96374; 96375; 99284-25; A9270-GY; C9113; J3490

== ENCOUNTER 2020-09-03 23:33 | Emergency (ER) | payer BC ==
[2020-09-04 00:05] LABS: CHLORIDE,CL 105 mmol/L (98-107); SODIUM,NA 138 mmol/L (136-145)
[2020-09-04] MEDS ORDERED: Sodium Chloride 0.9% 1,000 ML IV ONE (00:20)
[2020-09-04] MEDS ORDERED: Morphine 2 MG/ML SYRINGE IVPUSH ONE (00:21)
[2020-09-04] MEDS ORDERED: Ondansetron 4 MG/2 ML SDV IVPUSH ONE (00:21)
[2020-09-04] MEDS ORDERED: Iopamidol 612 MG/ML 100 ML Bottle IVPUSH STA (00:35)
--- NOTE | 2020-09-04 02:28 | EDM.PDOC ---
ED HPI GENERAL MEDICAL PROBLEM - General Chief Complaint: Abdominal Pain Stated Complaint: abdominal pain Time Seen by Provider: 09/03/20 23:45 Source of Information: Reports: Patient History Limitations: Reports: No Limitations - History of Present Illness INITIAL COMMENTS - FREE TEXT/NARRATIVE: Pt with onset of abdominal pain and N/V starting at 2200 hrs Emesis X 5 so far No fever No diarrhea Had gastric bypass 07/05 Onset: Today, Sudden Duration: Hour(s):, Getting Worse Location: Reports: Abdomen Severity: Moderate Associated Symptoms: Reports: Nausea/Vomiting Middle Abdominal Pain Score (Numeric/FACES): 8 - Related Data Allergies Allergy/AdvReac Type Severity Reaction Status Date / Time No Known Allergies Allergy Verified 09/03/20 23:37 Home Meds: Home Meds Cholecalciferol (Vitamin D3) [Vitamin D3] 5,000 unit PO DAILY 11/13/17 [History] Cyanocobalamin (Vitamin B-12) [Vitamin B-12] 1,500 mcg SL DAILY 11/13/17 [History] Vitamin B Complex [Balanced B-50] 1 tab PO DAILY 11/13/17 [History] Non-Formulary Medication [NF Drug] 1 each PO DAILY 06/30/18 [History] Ondansetron [Zofran ODT] 4 mg PO Q6HR PRN #0 06/30/18 [Rx] FLUoxetine HCl [Prozac] 40 mg PO DAILY 12/13/18 [History] Multivit-Minerals/Folic Acid [Centrum Multigummies] 150 mcg PO DAILY 12/13/18 [History] Pantoprazole Sodium [Protonix] 40 mg PO DAILY 12/13/18 [History] Liraglutide [Victoza] 0.9 ml SUBCUT DAILY 11/27/19 [History] Past Medical History HEENT History: Reports: Impaired Vision, Other (See Below) Other HEENT History: She wears glasses. Cardiovascular History: Reports: None Respiratory History: Reports: Intubation, Previous, Sleep Apnea, Other (See Below) Other Respiratory History: Patient is compliant with her CPAP. Gastrointestinal History: Reports: Cholelithiasis, Chronic Constipation, Gastritis, GERD, Hiatal Hernia, Other (See Below) Other Gastrointestinal History: Chronic intermittent abdominal pain likely secondary to adhesions from previous surgeries as below. Note cholecystectomy in 2011 with additional gastric bypass surgery in 2017 as below. Genitourinary History: Reports: Hydronephrosis, Renal Calculus, UTI, Recurrent, Other (See Below) Other Genitourinary History: History of recurrent bilateral urolithiasis initially at age 23 with additional episode in 2014 and last episode on 08/29/19 with spontaneous passage 2019. Chronic left renal nodule/hemorrhagic cyst under observation with initial diagnosis on 08/30/[address] scans, MRI, etc.. 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 Full term as below without other complications during or delivery Musculoskeletal History: Reports: Arthritis, Back Pain, Chronic, Fracture, Osteoarthritis, Other (See Below) Other Musculoskeletal History: Coccyx fracture 2001. Phalangeal fracture of digit #5 of the right foot in April 2018. Unknown type of right foot fractures in 1992 and 1994. Left wrist fracture in 1997. Neurological History: Reports: None Psychiatric History: Reports: Anxiety, Depression Endocrine/Metabolic History: Reports: Hypomagnesemia, Obesity/BMI 30+, Other (See Below) Other Endocrine/Metabolic History: Hirsutism. Hypoalbuminemia. Hematologic History: Reports: None Immunologic History: Reports: None Oncologic (Cancer) History: Reports: None Dermatologic History: Reports: None - Infectious Disease History Infectious Disease History: Reports: Chicken Pox - Past Surgical History Head Surgeries/Procedures: Reports: None HEENT Surgical History: Reports: Oral Surgery, Other (See Below) Other HEENT Surgeries/Procedures: [place] teeth extraction 4 in 1996. Multiple additional teeth extractions. Cardiovascular Surgical History: Reports: None Respiratory Surgical History: Reports: None GI Surgical History: Reports: Bariatric Procedure, Cholecystectomy, EGD, Antonio Fundoplication, Other (See Below) Other GI Surgeries/Procedures: Laparoscopic Gilmer-en-Y with concomitant concomitant Antonio fundoplication and paraesophageal hernia repair on 07/04/17. EGD with biopsy on 06/01/18 with gastric pouch gastritis noted and apparent negative H. pylori biopsy at that time. Laparoscopic cholecystectomy in on 07/05/12. Female Surgical History: Reports: Section, Cystoscopy, Kidney stone extraction, Other (See Below) Other Female Surgeries/Procedures: Cystoscopy with left ureteral stone removal on 12/13/18. Previous cystoscopy with left ureteral stone removal with concomitant laser lithotripsy and stent placement in the right ureter on 11/27/14. LTCS at full-term in 2004 secondary to failure to progress. Endocrine Surgical History: Reports: None Neurological Surgical History: Reports: None Musculoskeletal Surgical History: Reports: None Oncologic Surgical History: Reports: None Dermatological Surgical History: Reports: None - Past Imaging History Past Imaging History: Reports: CAT Scan (CT scan of the abdomen and pelvis on 11/12/19, 06/30/18 and 11/08/17.), MRI ( abdomen on 05/28/19), Sleep Study, Ultrasound (Bilateral renal ultrasound on 08/29/19, 11/21/18, 10/09/18, and 07/03/18.) Social & Family History - Family History Family Medical History: No Pertinent Family History - Tobacco Use Tobacco Use Status *Q: Current Every Day Tobacco User Years of Tobacco use: 19 Packs/Tins Daily: 0.5 - Caffeine Use Caffeine Use: Reports: Coffee - Recreational Drug Use Recreational Drug Use: No - Living Situation & Occupation Living situation: Reports: (Second in 2014,), ( from first in 2007 with one child from this relationship.), with Family 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) ED ROS GENERAL - Review of Systems Review Of Systems: See Below Respiratory: Reports: No Symptoms Cardiovascular: Reports: No Symptoms GI/Abdominal: Reports: Abdominal Pain, Nausea, Vomiting : Reports: No Symptoms Musculoskeletal: Reports: No Symptoms ED EXAM, GI/ABD - Physical Exam Exam: See Below Exam Limited By: No Limitations General Appearance: Moderate Distress Neck: Supple Respiratory/Chest: Lungs Clear Cardiovascular: Regular Rate, Rhythm GI/Abdominal Exam: Soft, Tender, Other (Tender in upper abdomen) Course - Vital Signs Last Recorded V/S: Last Vital Signs Temp 97.1 F 09/03/20 23:34 Pulse 90 09/03/20 23:34 Resp 12 09/03/20 23:34 BP 121/68 09/03/20 23:34 Pulse Ox 100 09/03/20 23:34 - Orders/Labs/Meds Orders: Active Orders 24 hr Category Date Time Status Abdomen Pelvis w Cont [CT] Stat Exams 09/04/20 00:20 Taken CBC WITH AUTO DIFF [HEME] Stat Lab 09/03/20 23:38 Ordered COMPREHENSIVE METABOLIC PN,CMP [CHEM] Stat Lab 09/03/20 23:38 Ordered LIPASE [CHEM] Stat Lab 09/03/20 23:38 Ordered UA RFX TOM AND CULT IF INDIC [URIN] Stat Lab 09/03/20 23:38 Ordered Meds: Medications Discontinued Medications Generic Name Dose Route Start Last Admin Trade Name Freq PRN Reason Stop Dose Admin Sodium Chloride 1,000 mls @ 1,000 mls/hr 09/04/20 00:20 09/04/20 00:31 Normal Saline IV 09/04/20 01:19 1,000 mls/hr .BOLUS ONE Administration Iopamidol 100 ml 09/04/20 00:35 09/04/20 00:57 Isovue-300 (61%) IVPUSH 09/04/20 00:36 100 ml ONETIME STA Administration Morphine Sulfate 2 mg 09/04/20 00:21 09/04/20 00:30 Morphine IVPUSH 09/04/20 00:22 2 mg ONETIME ONE Administration Ondansetron HCl 8 mg 09/04/20 00:21 09/04/20 00:31 Zofran IVPUSH 09/04/20 00:22 8 mg ONETIME ONE Administration - Re-Assessments/Exams Free Text/Narrative Re-Assessment/Exam: 09/04/20 02:[address] per radiologist Intussusception at jejunum/jejunum junction and mobile cecum with questionable SBO at both sites D/W Dr Deras On-call [facility] surgery Will accept in transfer Pt requests transfer by private vehicle Departure - Departure Time of Disposition: 02:30 Disposition: DC/Tfer to [facility] 02 Clinical Impression: Intussusception of intestine - Discharge Information *PRESCRIPTION DRUG MONITORING PROGRAM REVIEWED*: Not Applicable *COPY OF PRESCRIPTION DRUG MONITORING REPORT IN PATIENT TYRESE: Not Applicable Referrals: PCP,None [Primary Care Provider] - Sepsis Event Note (ED) - Evaluation Sepsis Screening Result: No Definite Risk - Focused Exam Vital Signs: Vital Signs Temp Pulse Resp BP Pulse Ox 09/03/20 23:34 97.1 F 90 12 121/68 100 - My Orders Last 24 Hours: My Active Orders 09/03/20 23:38 CBC WITH AUTO DIFF [HEME] Stat COMPREHENSIVE METABOLIC PN,CMP [CHEM] Stat LIPASE [CHEM] Stat UA RFX TOM AND CULT IF INDIC [URIN] Stat 09/04/20 00:20 Abdomen Pelvis w Cont [CT] Stat - Assessment/Plan Last 24 Hours: My Active Orders 09/03/20 23:38 CBC WITH AUTO DIFF [HEME] Stat COMPREHENSIVE METABOLIC PN,CMP [CHEM] Stat LIPASE [CHEM] Stat UA RFX TOM AND CULT IF INDIC [URIN] Stat 09/04/20 00:20 Abdomen Pelvis w Cont [CT] Stat
== END 2020-09-04 02:35 ==
LOC: LL.ED 23:33
DX: K56.1 Intussusception (principal); K21.9 Gastro-esophageal reflux disease without esophagitis; F41.9 Anxiety disorder, unspecified; F32.9 Major depressive disorder, single episode, unspecified; F17.210 Nicotine dependence, cigarettes, uncomplicated; Z79.899 Other long term (current) drug therapy
CPT/HCPCS: 36415; 74177; 80053; 81003; 83690; 85025; 96374; 96375; 99285-25; J2270; J2405; J7030; Q9967

== ENCOUNTER 2020-12-05 17:08 | Emergency (ER) | payer BC ==
[2020-12-05] MEDS ORDERED: Iopamidol 612 MG/ML 100 ML Bottle IVPUSH STA (17:30)
[2020-12-05 17:48] LABS: CHLORIDE,CL 105 mmol/L (98-107); SODIUM,NA 138 mmol/L (136-145)
[2020-12-05] MEDS ORDERED: Morphine 2 MG/ML SYRINGE SUBCUT ONE (18:02)
[2020-12-05] MEDS ORDERED: Morphine 2 MG/ML SYRINGE IVPUSH ONE (18:03)
[2020-12-05] MEDS ORDERED: Ondansetron 4 MG/2 ML SDV IVPUSH ONE (18:03)
--- NOTE | 2020-12-05 18:16 | EDM.PDOC ---
ED HPI GENERAL MEDICAL PROBLEM - General Chief Complaint: Abdominal Pain Stated Complaint: abdominal pain Time Seen by Provider: 12/05/20 17:45 Source of Information: Reports: Patient History Limitations: Reports: No Limitations - History of Present Illness INITIAL COMMENTS - FREE TEXT/NARRATIVE: Patient had sudden mid abdominal pain starting around 2pm. No radiation. Stays in same place. No fevers/chills. No nausea/vomiting. No bowel change. No chance of . No urinary changes. Feels the same as when she had an intussusception of bowel last winter which did require surgery. Also history gastric bypass. Left Upper Abdominal Pain Score (Numeric/FACES): 5 - Related Data Allergies Allergy/AdvReac Type Severity Reaction Status Date / Time No Known Allergies Allergy Verified 09/03/20 23:37 Home Meds: Home Meds Cholecalciferol (Vitamin D3) [Vitamin D3] 5,000 unit PO DAILY 11/13/17 [History] Cyanocobalamin (Vitamin B-12) [Vitamin B-12] 1,500 mcg SL DAILY 11/13/17 [History] Vitamin B Complex [Balanced B-50] 1 tab PO DAILY 11/13/17 [History] Non-Formulary Medication [NF Drug] 1 each PO DAILY 06/30/18 [History] Ondansetron [Zofran ODT] 4 mg PO Q6HR PRN #0 06/30/18 [Rx] FLUoxetine HCl [Prozac] 40 mg PO DAILY 12/13/18 [History] Multivit-Minerals/Folic Acid [Centrum Multigummies] 150 mcg PO DAILY 12/13/18 [History] Pantoprazole Sodium [Protonix] 40 mg PO DAILY 12/13/18 [History] Liraglutide [Victoza] 0.9 ml SUBCUT DAILY 11/27/19 [History] Past Medical History HEENT History: Reports: Impaired Vision, Other (See Below) Other HEENT History: She wears glasses. Cardiovascular History: Reports: None Respiratory History: Reports: Intubation, Previous, Sleep Apnea, Other (See Below) Other Respiratory History: Patient is compliant with her CPAP. Gastrointestinal History: Reports: Cholelithiasis, Chronic Constipation, Gastritis, GERD, Hiatal Hernia, Other (See Below) Other Gastrointestinal History: Chronic intermittent abdominal pain likely secondary to adhesions from previous surgeries as below. Note cholecystectomy in 2011 with additional gastric bypass surgery in 2017 as below. Genitourinary History: Reports: Hydronephrosis, Renal Calculus, UTI, Recurrent, Other (See Below) Other Genitourinary History: History of recurrent bilateral urolithiasis initially at age 23 with additional episode in 2014 and last episode on 08/29/19 with spontaneous passage 2019. Chronic left renal nodule/hemorrhagic cyst under observation with initial diagnosis on 08/30/[address] scans, MRI, etc.. 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 Full term as below without other complications during or delivery Musculoskeletal History: Reports: Arthritis, Back Pain, Chronic, Fracture, Osteoarthritis, Other (See Below) Other Musculoskeletal History: Coccyx fracture 2001. Phalangeal fracture of digit #5 of the right foot in April 2018. Unknown type of right foot fractures in 1992 and 1994. Left wrist fracture in 1997. Neurological History: Reports: None Psychiatric History: Reports: Anxiety, Depression Endocrine/Metabolic History: Reports: Hypomagnesemia, Obesity/BMI 30+, Other (See Below) Other Endocrine/Metabolic History: Hirsutism. Hypoalbuminemia. Hematologic History: Reports: None Immunologic History: Reports: None Oncologic (Cancer) History: Reports: None Dermatologic History: Reports: None - Infectious Disease History Infectious Disease History: Reports: Chicken Pox - Past Surgical History Head Surgeries/Procedures: Reports: None HEENT Surgical History: Reports: Oral Surgery, Other (See Below) Other HEENT Surgeries/Procedures: [place] teeth extraction 4 in 1996. Multiple additional teeth extractions. Cardiovascular Surgical History: Reports: None Respiratory Surgical History: Reports: None GI Surgical History: Reports: Bariatric Procedure, Cholecystectomy, EGD, Antonio Fundoplication, Other (See Below) Other GI Surgeries/Procedures: Laparoscopic Gilmer-en-Y with concomitant concomitant Antonio fundoplication and paraesophageal hernia repair on 07/04/17. EGD with biopsy on 06/01/18 with gastric pouch gastritis noted and apparent negative H. pylori biopsy at that time. Laparoscopic cholecystectomy in on 07/05/12. Female Surgical History: Reports: Section, Cystoscopy, Kidney stone extraction, Other (See Below) Other Female Surgeries/Procedures: Cystoscopy with left ureteral stone removal on 12/13/18. Previous cystoscopy with left ureteral stone removal with concomitant laser lithotripsy and stent placement in the right ureter on 11/27/14. LTCS at full-term in 2004 secondary to failure to progress. Endocrine Surgical History: Reports: None Neurological Surgical History: Reports: None Musculoskeletal Surgical History: Reports: None Oncologic Surgical History: Reports: None Dermatological Surgical History: Reports: None - Past Imaging History Past Imaging History: Reports: CAT Scan (CT scan of the abdomen and pelvis on 11/12/19, 06/30/18 and 11/08/17.), MRI ( abdomen on 05/28/19), Sleep Study, Ultrasound (Bilateral renal ultrasound on 08/29/19, 11/21/18, 10/09/18, and 07/03/18.) Social & Family History - Family History Family Medical History: No Pertinent Family History - Caffeine Use Caffeine Use: Reports: Coffee - Living Situation & Occupation Living situation: Reports: (Second in 2014,), ( from first in 2007 with one child from this relationship.), with Family 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 ED EXAM, GENERAL - Physical Exam Exam: See Below Exam Limited By: No Limitations General Appearance: Alert, Moderate Distress, Obese Eye Exam: Bilateral Eye: EOMI, PERRL Ears: Hearing Grossly Normal Nose: No: Nasal Deformity, Nasal Swelling, Nasal Drainage Throat/Mouth: Normal Lips, Normal Voice, No Airway Compromise Head: Atraumatic, Normocephalic Neck: Supple, Full Range of Motion Respiratory/Chest: No Respiratory Distress, Lungs Clear, Normal Breath Sounds, No Accessory Muscle Use Cardiovascular: Regular Rate, Rhythm, No Murmur GI/Abdominal: Soft, Other (tender with palpation just above umbilicus/reproduces patient's pain complaint. ) (Female) Exam: Deferred Rectal (Female) Exam: Deferred Back Exam: No: CVA Tenderness (L), CVA Tenderness (R), Muscle Spasm Extremities: Normal Capillary Refill Neurological: Alert, Oriented, Normal Cognition, Normal Gait Psychiatric: Normal Affect, Normal Mood Skin Exam: Warm, Dry, Intact, Normal Color Course - Vital Signs Last Recorded V/S: Last Vital Signs Temp 36.6 C 03/19/21 17:09 Pulse 71 12/05/20 17:09 Resp 20 12/05/20 17:09 BP 124/71 12/05/20 17:09 Pulse Ox 100 12/05/20 17:09 - Orders/Labs/Meds Orders: Active Orders 24 hr Category Date Time Status Abdomen Pelvis w Cont [CT] Stat Exams 12/05/20 17:22 Taken Labs: Laboratory Tests 12/05/20 12/05/20 12/05/20 Range/Units 17:25 17:25 17:25 WBC 9.2 (4.0-10.2) K/uL RBC 4.13 (3.77-5.09) M/uL Hgb 13.5 (11.7-15.5) g/dL Hct 39.7 (34.0-46.0) % MCV 96.1 (84.0-98.0) fL MCH 32.7 (28.2-33.3) pg MCHC 34.0 (31.7-36.0) g/dL RDW 12.6 (11.2-14.1) % Plt Count 203 (150-350) K/uL Neut % (Auto) 57.0 (45.0-80.0) % Lymph % (Auto) 34.1 (10.0-50.0) % [place] % (Auto) 7.0 (2.0-14.0) % Eos % (Auto) 1.8 (0.0-5.0) % Baso % (Auto) 0.1 (0.0-2.0) % Neut # (Auto) 5.24 (1.40-7.00) K/uL Lymph # (Auto) 3.14 (0.50-3.50) K/uL [place] # (Auto) 0.64 (0.00-1.00) K/uL Eos # (Auto) 0.17 (0.00-0.50) K/uL Baso # (Auto) 0.01 (0.00-0.20) K/uL Sodium 138 (136-145) mmol/L Potassium 4.1 (3.5-5.1) mmol/L Chloride 105 (98-107) mmol/L Carbon Dioxide 25.5 (21.0-32.0) mmol/L BUN 20 H (7-18) mg/dL Creatinine 0.85 (0.51-1.17) mg/dL Est Cr Clr Drug Dosing 81.54 mL/min Estimated GFR (MDRD) > 60 mL/min Glucose 82 (70-99) mg/dL Lactic Acid 0.4 (0.4-2.0) mmol/L Calcium 9.0 (8.5-10.1) mg/dL Magnesium 1.8 (1.8-2.4) mg/dL Total Bilirubin 0.4 (0.2-1.0) mg/dL AST 27 (15-37) U/L ALT 51 (12-78) U/L Alkaline Phosphatase 87 (46-116) IU/L Total Protein 6.6 (6.4-8.2) g/dL Albumin 3.6 (3.4-5.0) g/dL Specimen Type Urine Color Urine Appearance Urine pH (5.0-9.0) Ur Specific [place] (1.005-1.030) Urine Protein (NEGATIVE) mg/dL Urine Glucose (UA) (NEGATIVE) mg/dL Urine Ketones (NEGATIVE) mg/dL Urine Occult Blood (NEGATIVE) Urine Nitrite (NEGATIVE) Urine Bilirubin (NEGATIVE) Urine Urobilinogen (0.2-1.0) E.U./dL Ur Leukocyte Esterase (NEGATIVE) 12/05/20 Range/Units 17:35 WBC (4.0-10.2) K/uL RBC (3.77-5.09) M/uL Hgb (11.7-15.5) g/dL Hct (34.0-46.0) % MCV (84.0-98.0) fL MCH (28.2-33.3) pg MCHC (31.7-36.0) g/dL RDW (11.2-14.1) % Plt Count (150-350) K/uL Neut % (Auto) (45.0-80.0) % Lymph % (Auto) (10.0-50.0) % [place] % (Auto) (2.0-14.0) % Eos % (Auto) (0.0-5.0) % Baso % (Auto) (0.0-2.0) % Neut # (Auto) (1.40-7.00) K/uL Lymph # (Auto) (0.50-3.50) K/uL [place] # (Auto) (0.00-1.00) K/uL Eos # (Auto) (0.00-0.50) K/uL Baso # (Auto) (0.00-0.20) K/uL Sodium (136-145) mmol/L Potassium (3.5-5.1) mmol/L Chloride (98-107) mmol/L Carbon Dioxide (21.0-32.0) mmol/L BUN (7-18) mg/dL Creatinine (0.51-1.17) mg/dL Est Cr Clr Drug Dosing mL/min Estimated GFR (MDRD) mL/min Glucose (70-99) mg/dL Lactic Acid (0.4-2.0) mmol/L Calcium (8.5-10.1) mg/dL Magnesium (1.8-2.4) mg/dL Total Bilirubin (0.2-1.0) mg/dL AST (15-37) U/L ALT (12-78) U/L Alkaline Phosphatase (46-116) IU/L Total Protein (6.4-8.2) g/dL Albumin (3.4-5.0) g/dL Specimen Type Urinblad Urine Color Yellow Urine Appearance Clear Urine pH 7.0 (5.0-9.0) Ur Specific [place] 1.020 (1.005-1.030) Urine Protein Negative (NEGATIVE) mg/dL Urine Glucose (UA) Negative (NEGATIVE) mg/dL Urine Ketones Negative (NEGATIVE) mg/dL Urine Occult Blood Negative (NEGATIVE) Urine Nitrite Negative (NEGATIVE) Urine Bilirubin Negative (NEGATIVE) Urine Urobilinogen 0.2 (0.2-1.0) E.U./dL Ur Leukocyte Esterase Negative (NEGATIVE) Meds: Medications Discontinued Medications Generic Name Dose Route Start Last Admin Trade Name Freq PRN Reason Stop Dose Admin Iopamidol 100 ml 12/05/20 17:30 12/05/20 17:48 Iopamidol 612 Mg/Ml 100 Ml Bottle IVPUSH 12/05/20 17:31 100 ml ONETIME STA Administration Morphine Sulfate 2 mg 12/05/20 18:02 Morphine 2 Mg/Ml Syringe SUBCUT 12/05/20 18:03 ONETIME ONE Morphine Sulfate 2 mg 12/05/20 18:03 12/05/20 18:30 Morphine 2 Mg/Ml Syringe IVPUSH 12/05/20 18:04 2 mg ONETIME ONE Administration Ondansetron HCl 4 mg 12/05/20 18:03 12/05/20 18:30 Ondansetron 4 Mg/2 Ml Sdv IVPUSH 12/05/20 18:04 4 mg ONETIME ONE Administration - Re-Assessments/Exams Free Text/Narrative Re-Assessment/Exam: 12/05/20 18:17 CBC/Mg/lactic/CMP unremarkable. Patient refused test, saying it was impossible/no sexual contact. Declined plain abdominal films and wanted instead to get CT done for better rule out of repeat intussusception. Normal BP/pulse. Did receive some MS/Zofran. Free Text/Narrative Re-Assessment/Exam: 12/05/20 19:17 CT report faxed at [id number]: No acute intraabdominal findings. Several fluid-filled loops small bowel midline of abdomen that are nonspecific. No evidence of obstruction or inflammatory changes. Ventral wall hernia vs diastasis but no bowel incarceration or obstruction. May have partial ileus. Is not vomiting. Is still passing gas and having normal bowel movements. Conservative management at this time. Clear liquid diet recommended for 24 hours/advance as tolerated. Precautions reviewed. To observe for additional changes and follow up as needed if symptoms worsen or do not improve by Tuesday morning. Patient has Dilaudid at home for PRN use. Departure - Departure Time of Disposition: 19:14 Disposition: Home, Self-Care 01 Condition: Good Clinical Impression: Abdominal pain Qualifiers: Abdominal location: periumbilical Qualified Code(s): R10.33 - Periumbilical pain - Discharge Information *PRESCRIPTION DRUG MONITORING PROGRAM REVIEWED*: Not Applicable *COPY OF PRESCRIPTION DRUG MONITORING REPORT IN PATIENT TYRESE: Not Applicable Instructions: Ileus Referrals: PCP,None [Primary Care Provider] - Forms: ED Department Discharge Additional Instructions: Clear liquids x24 hours/observe symptoms and if there are additional changes. If things appear to be improving, advance diet slowly as tolerated. If not, stick with clear liquids over weekend. Follow up Tuesday at clinic if still with significant symptoms. Follow up in ER PRN sudden severe worsening. Sepsis Event Note (ED) - Evaluation Sepsis Screening Result: No Definite Risk - Focused Exam Vital Signs: Vital Signs Temp Pulse Resp BP Pulse Ox 12/05/20 17:09 36.6 C 71 20 124/71 100 - My Orders Last 24 Hours: My Active Orders 12/05/20 17:22 Abdomen Pelvis w Cont [CT] Stat - Assessment/Plan Last 24 Hours: My Active Orders 12/05/20 17:22 Abdomen Pelvis w Cont [CT] Stat
== END 2020-12-05 19:23 | disposition home or self-care (01) ==
LOC: LL.ED 17:08
DX: R10.33 Periumbilical pain (principal); R10.12 Left upper quadrant pain; K21.9 Gastro-esophageal reflux disease without esophagitis; E66.9 Obesity, unspecified; Z68.32 Body mass index [BMI] 32.0-32.9, adult; Z79.899 Other long term (current) drug therapy
CPT/HCPCS: 36415; 74177; 80053; 81003; 83605; 83735; 85025; 96374; 96375; 99284; 99284-25; J2270; J2405; Q9967

== ENCOUNTER 2022-07-24 21:26 | Emergency (ER) | payer BC ==
[2022-07-24] MEDS ORDERED: Iopamidol 612 MG/ML 100 ML Bottle IVPUSH STA (21:47)
[2022-07-24 21:55] LABS: ANION GAP 11.9 meq/L (7-15); CHLORIDE,CL 105 mmol/L (98-107); ESTIMATED GFR 100 mL/min (>=60); SODIUM,NA 140 mmol/L (136-145)
== END 2022-07-24 23:29 | disposition home or self-care (01) ==
LOC: LL.ED 21:26
DX: R10.33 Periumbilical pain (principal); K21.9 Gastro-esophageal reflux disease without esophagitis; M19.90 Unspecified osteoarthritis, unspecified site; E66.9 Obesity, unspecified; Z72.0 Tobacco use; Z79.899 Other long term (current) drug therapy
CPT/HCPCS: 36415; 74177; 80053; 81001; 85025; 99284; Q9967

== ENCOUNTER 2024-05-23 21:46 | Emergency (ER) | payer BC | END 2024-05-23 22:45 | disposition home or self-care (01) | LOC: LL.ED 21:46 | DX: R19.8 Other specified symptoms and signs involving the digestive system and abdomen (principal); K21.9 Gastro-esophageal reflux disease without esophagitis; E66.9 Obesity, unspecified; Z90.49 Acquired absence of other specified parts of digestive tract; Z79.899 Other long term (current) drug therapy | CPT/HCPCS: 99283 ==

== ENCOUNTER 2025-08-10 09:03 | Emergency (ER) | payer BC, OTHER ==
[2025-08-10 09:16] LABS: APPEARANCE,URINE TURBID; GLUCOSE,URINE NEGATIVE (NEGATIVE); OCCULT BLOOD,URINE SMALL (NEGATIVE)
[2025-08-10] MEDS: Take Home: Sulfamethoxazole/Trimethoprim 800-160 MG Tab, 6 Tab Pack PO ONE (09:34)
== END 2025-08-10 09:35 | disposition home or self-care (01) ==
LOC: LL.ED 09:03
DX: N39.0 Urinary tract infection, site not specified (principal); F17.210 Nicotine dependence, cigarettes, uncomplicated; Z79.899 Other long term (current) drug therapy; Z79.82 Long term (current) use of aspirin; Z79.85 Long-term (current) use of injectable non-insulin antidiabetic drugs
CPT/HCPCS: 81001; 87086; 87088; 87186; 99283; A9270; 99284

== ENCOUNTER 2025-09-01 15:36 | Emergency (ER) | payer OTHER ==
[2025-09-01] MEDS ORDERED: Naloxone 0.4 MG/ML SDV IVPUSH PRN (16:12)
[2025-09-01 16:32] LABS: BASOPHILS ABSOLUTE AUTO 0.01 K/uL (0.00-0.20); BASOPHILS PERCENT AUTO 0.1 % (0.0-2.0); EOSINOPHILS ABSOLUTE AUTO 0.18 K/uL (0.00-0.50); EOSINOPHILS PERCENT AUTO 2.6 % (0.0-5.0); IMMATURE GRAN ABSOLUTE AUTO 0.01 10^3/uL (0.00-0.04); IMMATURE GRAN PERCENT AUTO 0.1 % (0.0-0.4); LYMPHOCYTES ABSOLUTE AUTO 2.28 K/uL (0.50-3.50); LYMPHOCYTES PERCENT AUTO 33.2 % (10.0-50.0); MONOCYTES ABSOLUTE AUTO 0.55 K/uL (0.00-1.00); MONOCYTES PERCENT AUTO 8.0 % (2.0-14.0); NEUTROPHILS ABSOLUTE AUTO 3.83 K/uL (1.40-7.00); NEUTROPHILS PERCENT AUTO 56.0 % (45.0-80.0); PLATELET COUNT,PLT 218 K/uL (150-350); RED BLOOD CELL COUNT 3.81 M/uL (3.77-5.09); RED CELL DISTRIBUTION WIDTH 12.3 % (11.2-14.1); WHITE BLOOD CELL COUNT,WBC 6.9 K/uL (4.0-10.2)
[2025-09-01] MEDS: Iopamidol 612 MG/ML 100 ML Bottle IVPUSH ONE (16:43)
[2025-09-01] MEDS: Ondansetron 4 MG/2 ML SDV IVPUSH PRN (16:47)
[2025-09-01] MEDS: Sodium Chloride 0.9% 10 ML Syringe FLUSH PRN (16:47)
[2025-09-01 16:50] LABS: ALANINE AMINOTRANSFERASE,ALT 52.0 U/L (12-78); ASPARTATE AMNIOTRANSFERASE,AST 28.0 U/L (15-37); BILIRUBIN TOTAL 0.5 mg/dL (0.2-1.0); BLOOD UREA NITROGEN,BUN 13.0 mg/dL (7-18); CARBON DIOXIDE,CO2 28.8 mmol/L (21.0-32.0); CHLORIDE,CL 108.0 mmol/L (98-107); CREATININE 0.76 mg/dL (0.51-1.17); EST CRCL DRUG DOSING (CG) 91.19 mL/min; GLUCOSE RANDOM 77.0 mg/dL (70-99); POTASSIUM,K 4.2 mmol/L (3.5-5.1); PROTEIN TOTAL,TP 6.0 g/dL (6.4-8.2); SODIUM,NA 142.0 mmol/L (136-145)
[2025-09-01 16:52] LABS: ESTIMATED GFR 101.0 mL/min (>=60)
== END 2025-09-01 17:28 | disposition home or self-care (01) ==
LOC: LL.ED 15:36
DX: R10.11 Right upper quadrant pain (principal); R14.0 Abdominal distension (gaseous); K21.9 Gastro-esophageal reflux disease without esophagitis; F17.200 Nicotine dependence, unspecified, uncomplicated; Z79.899 Other long term (current) drug therapy
CPT/HCPCS: 36415; 74177; 80053; 83690; 83735; 85025; 96374; 96375; 99284; 99284-25; J1171; J2405; Q9967